=== PATIENT | female | born 1990 | race Caucasian/White ===

== ENCOUNTER 2023-08-26 12:42 | Outpatient (CLI) | payer BC, SELFPAY ==
--- NOTE | 2023-08-26 13:00 | CRLHL7_ITS ---
For Patients: As a result of the Cures Act, medical imaging exams and procedure reports are released immediately into your electronic medical record. You may view this report before your referring provider. If you have questions, please contact your health care provider. INDICATION: First trimester scan, establish dates. COMPARISON: None. TECHNIQUE: Real-time townsend-scale imaging of the pelvis was performed. FINDINGS: Sonographic imaging demonstrates a single living intrauterine gestation. The embryo demonstrates a regular cardiac rate measuring 149 beats per minute. The embryo`s crown-rump length measurement of 1.3 cm corresponds to a gestational age of 7 weeks 4 days with a sonographic due date of 04/09/2024. There is a normal-appearing yolk sac. There are no gross abnormalities noted within the embryo at this early state of development. The gestational sac has a normal appearance. There is no evidence of a perigestational hemorrhage. The amount of fluid within the sac appears appropriate for gestational age. The cervix is closed. The myometrium appears normal. The ovaries are of normal size. There are no suspicious fluid collections noted in the cul-de-sac. IMPRESSION: Normal first trimester OB ultrasound exam. Gestational age calculated at 7 weeks 4 days with a sonographic due date of 04/09/2024. Dictated by Vishnu Weiss MD @ 08/27/2023 10:49:41 AM (Electronically Signed)
== END 2023-08-26 12:43 | disposition home or self-care (01) ==
LOC: US 12:46
PROVIDERS: Visit Provider Physician Assistant
DX: Z34.91 Encounter for supervision of normal pregnancy, unspecified, first trimester (principal); Z3A.01 Less than 8 weeks gestation of pregnancy
CPT/HCPCS: 76817; 86703; 86706; 86803; 86850; 86900; 86901; 87086; 87340

== ENCOUNTER 2023-08-26 13:58 | Outpatient (CLI) | payer BC, SELFPAY | END 2023-08-26 13:59 | disposition home or self-care (01) | PROVIDERS: Visit Provider Advanced Practice Midwife | DX: Z34.91 Encounter for supervision of normal pregnancy, unspecified, first trimester (principal); Z3A.08 8 weeks gestation of pregnancy | CPT/HCPCS: 86592; 86703; 86704; 86706; 86762; 86787; 86803; 86850; 86900; 86901; 87086; 87340 ==

== ENCOUNTER 2023-10-21 09:43 | Outpatient (CLI) | payer BC, SELFPAY | END 2023-10-21 09:44 | disposition home or self-care (01) | PROVIDERS: Visit Provider Advanced Practice Midwife | DX: Z34.92 Encounter for supervision of normal pregnancy, unspecified, second trimester (principal); Z3A.16 16 weeks gestation of pregnancy | CPT/HCPCS: 81511 ==

== ENCOUNTER 2024-01-13 08:34 | Outpatient (CLI) | payer BC, SELFPAY | END 2024-01-13 08:35 | disposition home or self-care (01) | LOC: NFLDREF 01-15 10:49 | PROVIDERS: Visit Provider Obstetrics & Gynecology | DX: Z34.91 Encounter for supervision of normal pregnancy, unspecified, first trimester (principal) | CPT/HCPCS: 86592 ==

== ENCOUNTER 2024-02-10 08:58 | Outpatient (CLI) | payer BC, SELFPAY | END 2024-02-10 08:59 | disposition home or self-care (01) | LOC: NFLDREF 08:59 | PROVIDERS: PCP Obstetrics & Gynecology; Visit Provider Obstetrics & Gynecology | DX: R35.0 Frequency of micturition (principal); R39.15 Urgency of urination | CPT/HCPCS: 87086 ==

== ENCOUNTER 2024-03-11 14:50 | Outpatient (CLI) | payer BC, SELFPAY | END 2024-03-11 14:51 | disposition home or self-care (01) | LOC: NFLDREF 03-16 08:29 | PROVIDERS: Visit Provider Obstetrics & Gynecology | DX: Z34.93 Encounter for supervision of normal pregnancy, unspecified, third trimester (principal) | CPT/HCPCS: 87081; 87653 ==

== ENCOUNTER 2024-03-30 04:59 | Inpatient (IN) | payer BC, SELFPAY ==
[2024-03-30] VITALS (32 sets, daily range): BP systolic 93–116; BP diastolic 55–77; PULSE 65–89; RESP 16–20; TEMP 36.4–36.8; O2SAT 97–100; BMI 34.2
--- OUTSIDE RECORDS SUMMARY | 2024-03-30 05:02 | XMS_ITS | Clinical Summary ---
Author Name Unknown Organization [place] Address [address] [facility] [place] [address] Care Team Providers Care Development Geologist Name Role Phone Leai Vang MD Unavailable [phone] No Ref-Primary, Physician Primary Care Provider Leia Vang MD Unavailable [phone] Allergies No known active allergies Medications Medication Sig Dispensed Refills Start Date End Date Status Vit-DSS-Fe Cbn-FA ( AD PO) Active Active Problems Problem Noted Date Diagnosed Date Need for Tdap vaccination 10/30/2023 Controlled substance agreement signed 10/04/2015 Overview: Overview: For use of stimulant medication Attention deficit hyperactiv ity disorder (ADHD), predominantly inattentive type 09/12/2015 Estimated Date of Delivery Comme nts Yes 04/06/2024 Based on last me nstrual period of 07/01/2023 Resolved Problems Problem Noted Date Diagnosed Date Resolved Date Need for Tdap vaccination 09/19/2017 Family History Medical History Relation Comments No Known Problems Father No Known Problems Mother Leukemia Paternal Grandfather Alzheimer Disease Paternal Grandmother No Known Problems Sister 1 No Known Problems Sister 2 Relation Status Comments Father Alive Maternal Grandfather Maternal Grandmother Mother Alive Paternal Grandfather Paternal Grandmother Sister 1 Alive Sister 2 Alive Social History Tobacco Use Types Packs/Day Years Used Date Smoking Tobacco: Never Smokeless Tobacco: Never Tobacco Cessation:Counseling Given: Not Answered Alcohol Use Standard Drinks/Week Comments No 0 (1 standard drink = 0.6 oz pur e alcohol) PHQ-2 Answer Date Recorded PHQ-2 Score 0 10/30/2023 Adolescent Education Answer Date Record ed Getting School Help Needed Not on file 10/30 Estimated Date of Delivery Comme nts Yes 04/06/2024 Based on last me nstrual period of 07/01/2023 Sex and Gender Information Value Date Recorded Sex Assigned at Not on file Gender Identity Not on file Sexual Orientation Not on file Last Filed Vital Signs Vital Sign Reading Time Taken Comments Blood Pressure 112/69 11/20/2023 3:08 PM ADMINISTRATIVE ASSISTANT RECEPTIONIST Pulse 78 11/20/2023 3:08 PM ADMINISTRATIVE ASSISTANT RECEPTIONIST Temperature 36.9 ??C (98.4 ??F) 09/19/2017 8:57 AM CD T Respiratory Rate - - Oxygen Saturation 100% 11/20/2023 3:08 PM ADMINISTRATIVE ASSISTANT RECEPTIONIST Inhaled Oxygen Concentration - - Weight 92.4 kg (203 lb 9.6 oz) 11/20/2023 3:08 P M ADMINISTRATIVE ASSISTANT RECEPTIONIST Height 177.8 cm (5' 10) 11/20/2023 3:08 PM ADMINISTRATIVE ASSISTANT RECEPTIONIST Body Mass Index 29.21 11/20/2023 3:08 PM ADMINISTRATIVE ASSISTANT RECEPTIONIST Plan of Treatment Health Maintenance Due Date Last Done Comments ADVANCE CARE PLANNING 1990 ANNUAL REVIEW OF HM ORDERS 1990 PAP 2011 YEARLY PREVENTIVE VISIT 09/28/2021 09/28/2020 COVID-19 Vaccine ( season) 2023 01/10/2021, 12/20/2020 MATERNAL SCREENING DISCUSSION 09/09/2023 PHQ-2 (once per calendar year) 2023 10/30/2023 OBGCT (OB) 12/16/2023 GROUP B STREP SCREENING 03/09/2024 INFLUENZA VACCINE (Season Ended) 2024 09/28/2020, 09/05/2019, 08/13/2018, Additional history exists DTAP/TDAP/TD IMMUNIZATION (8 - Td or Tdap) 10/26/2032 10/26/2022, 02/12/2018, 05/27/2008, Additional history exists IPV IMMUNIZATION Completed 06/10/1995, 09/1990, 1990, Additional history exists HEPATITIS B IMMUNIZATION Completed 003, 12/12/2002, 07/23/2002, Additional history exists MENINGITIS IMMUNIZATION Completed 05/18/2008 HPV IMMUNIZATION Completed 09/15/2012, 11/2010, 05/18/2008 HEPATITIS C SCREENING Completed 08/26/2023 HIV SCREENING Completed 08/26/2023 Pneumococcal Vaccine: Pediatrics (0 to 5 Years) and At-Risk Patients (6 to 64 Years) Aged Out No longer eligible based on patient's age to complete this topic RSV MONOCLONAL ANTIBODY Aged Out No l onger eligible based on patient's age to complete this topic RSV VACCINE ( & 60+) (No Doses Required) Completed Procedures Procedure Name Priority Date/Time Associated Diagnosis Comments HIV 1/2 AGN KATHY 4TH GEN WITH REFLEX ([facility]) Routine 08/26/2023 3:00 PM CDT HEPATITIS C ANTIBODY (EXTERNAL RESULT) Routine 08/26/2023 3:00 PM CDT from Last 3 Months or Most Recently Relevant to Health Maintenance Results * Hepatitis C Antibody (External Result) (08/26/2023 3:00 PM CDT) Hepatitis C Antibody (External) Negative Nonreactive EXTERNAL LAB 08/26/2023 3:00 PM CDT Patient Reported LAB - HIM EXTERNAL R ESULT EXTERNAL LAB External Lab * HIV 1/2 Agn Kathy 4th Gen w Reflex ([facility]) (08/26/2023 3:00 PM CDT) HIV 1/2 Agn Kathy 4th Gen With Reflex Negative EXTERNAL LAB Blood 08/26/2023 3:00 PM CDT Patient Reported LAB - NON-BEAKER BLO OD LABS EXTERNAL LAB External Lab from Last 3 Months or Most Recently Relevant to Health Maintenance Care Teams Development Geologist Relationship Specialty Start Date End Date No Ref-Primary, Physician PCP - General 10/21/23 Leia Vang MD [address] [facility] [address] [place] [address] window caser 10/21/23 Leia Vang MD [address] [facility] [address] [place] [address] Assigned OBGYN Provider 11/23/23
--- OUTSIDE RECORDS SUMMARY | 2024-03-30 05:02 | XMS_ITS | Clinical Summary ---
Author Name Unknown Organization [facility] Address [address] [place] [address] Care Team Providers Care Cutter Machine Tender Name Role Phone Unavailable Primary Care Provider Unavailabl e Source Comments Patient records contain information from all sites at [facility]. For routine questions regarding patient records, call [phone] during business hours, M-F 8:00 AM - 5:00 PM Central Time. Record requests for emergency care only can be directed to [phone] at any time.[facility] Allergies No known active allergies Medications Medication Sig Dispensed Refills Start Date End Date Status vits96/iron fum/folic ( vitamin-ferrous fumarate-FA) 27 mg iron- 800 mcg per tablet Take 2 tablets by mouth daily. Active Active Problems Problem Noted Date Diagnosed Date Examination Normal First Second Trimester 07/27/2022 Overview: Patient and partner are healthy, patient with no medical or surgical history, only medication is vitamins, no family history on either side of any significant genetic disease, complications, or defects. 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 Plans to breastfeed Contraception: Declines, plans repeat closely spaced Immunizations Name Administration Dates Next Due 4vHPV (discontinued) 09/15/2012,12/26/2010,05/18 DTaP (Infanrix, [employer]) 06/10/1995,11/1989,1990,1989,1990 HepA Adult 05/15/2013,04/20/2011 HepA Pediatric/Adolescent 04/20/2011 HepB Pediatric/Adolescent 02/25/2003,,07/23/2002,2001,07/23/2000 Hib (PRP-T) (ACTHIB, HIBERIX) 07/09/1991, 991 IPV 06/10/1995 Influenza (IM) Preservative Free 08/25/2015 Influenza TIV (IM) 11/08/2010 Influenza, Seasonal, Injectable 11/08/2010 MCV4 (Menactra)(Discontinued) 05/18/2008 MMR 05/23/2015, 5,07/09/1999,1990 OPV 1990,1990,1990 SARS-COV-2 (COVID-19) - PFIZ ER (Discontinued)(12 years or older) 12/20/2020 Td Preservative Free (TENIVA C, DECAVAC) 06/02/2002 Tdap 10/26/2022,02/12/2018,05/27/2008 TyVi (inj) 05/15/2013,06/22/2011 Typhoid, Unspecified 05/15/2013,06/22/2011 Typhus (discontinued) 05/15/2013,06/22/2011 ALISON 03/25/1993 influenza vaccine quad (FLUZONE/FLUARIX) (6 months and older)(PF) 09/28/2020,09/05/2019,08/13/2018 Social History Tobacco Use Types Packs/Day Years Used Date Smoking Tobacco: Never Smokeless Tobacco: Never Tobacco Cessation:Counseling Given: Not Answered Alcohol Use Standard Drinks/Week Comments Not Currently 0 (1 standard drink = 0.6 oz pur e alcohol) , not drinking Humiliation, Afraid, Rape, and Kick questionnair e Answer Date Recorded Within the last year, have y ou been afraid of your partner or ex-partner? No 12/20/2022 Within the last year, have y ou been humiliated or emotionally abused in other ways by your partner or ex-partner? No Within the last year, have y ou been kicked, hit, slapped, or otherwise physically hurt by your partner or ex-partner? No 12/20/2022 Within the last year, have y ou been raped or forced to have any kind of sexual activity by your partner or ex-partner? No 12/20/2022 Social Connection and Isolat ion Panel [NHANES] Answer Date Recorded In a typical week, how many times do you talk on the phone with family, friends, or neighbors? More than three times a week 12/20/2022 How often do you get togethe r with friends or relatives? Twice a week 12/20/2022 How often do you attend chur or amish services? More than 4 times per year 12/20/2022 Do you belong to any clubs o r organizations such as quaker groups, unions, fraternal or athletic groups, or school groups? Yes 12/20/2022 How often do you attend meet ings of the clubs or organizations you belong to? More than 4 times per year 12/20/2022 Are you , , di vorced, , never , or living with a partner? 12/20/2022 AUDIT-C Answer Date Recorded Q1: How often do you have a drink containing alc ohol? Never 12/20/2022 Q2: How many drinks containi ng alcohol do you have on a typical day when you are drinking? 3 or 4 12/20/2022 Q3: How often do you have si x or more drinks on one occasion? Less than monthly 12/20/2022 Overall Financial Resource Strain (CARDIA) Answe r Date Recorded How hard is it for you to pa y for the very basics like food, housing, medical care, and heating? Not hard at all 12/20/2022 PHQ-2 Answer Date Recorded PHQ-2 Score 0 02/26/2023 [facility] Health - Occupational Stress Questionnaire Answer Date Recorded Do you feel stress - tense, restless, nervous, or anxious, or unable to sleep at night because your mind is troubled all the time - these days? Not at all 12/20/2022 Exercise Vital Sign Answer Date Recorde d On average, how many days pe r week do you engage in moderate to strenuous exercise (like a brisk walk)? 3 days 12/20/2022 On average, how many minutes do you engage in exercise at this level? 30 min 12/20/2022 Hunger Vital Sign Answer Date Recorded Within the past 12 months, y ou worried that your food would run out before you got the money to buy more. Never true 12/20/19 23 Within the past 12 months, t he food you bought just didn't last and you didn't have money to get more. Never true 12/20/2022 PRAPARE - Transportation Answer Date Re corded In the past 12 months, has l ack of transportation kept you from medical appointments or from getting medications? No 11/26 In the past 12 months, has l ack of transportation kept you from meetings, work, or from getting things needed for daily living? No 12/20/2022 Housing Stability Vital Sign Answer Marcial e Recorded In the last 12 months, was t here a time when you were not able to pay the mortgage or rent on time? No 12/20/2022 In the last 12 months, how many places have you lived? 1 12/20/2022 In the last 12 months, was t here a time when you did not have a steady place to sleep or slept in a long-term (including now)? No 12/20/2022 Depression Answer Date Recor ded PHQ-9 Total Score (max 27) 2 02/26 Nutrition Answer Date Recorded Nutrition: EVOO Fat Source Yes 12/20 On average, how many serving s of fruits and vegetables do you eat per day (serving size is equal to 1 cup or approximately the size of a tennis ball)? 4-5 12/20/2022 Dental Answer Date Recorded Dental: Regular Dentist Yes 06/06/20 Employment Answer Date Recorded Employment status Employed and actively working without restrictions 12/20/2022 Education Answer Date Recorded What is the highest level of school you have completed or the highest degree you have received? Professional school degree (e.g., , DDS, DVM, URBANO) 06/06/2022 Sex and Gender Information Value Date Recorded Sex Assigned at Female 06/06/2022 10:20 AM CDT Gender Identity Female 06/06/2022 10:20 AM CDT Sexual Orientation Straight 06/06/2022 10 :20 AM CDT Last Filed Vital Signs Vital Sign Reading Time Taken Comments Blood Pressure 110/66 02/26/2023 2:39 PM CDT Pulse - - Temperature - - Respiratory Rate - - Oxygen Saturation - - Inhaled Oxygen Concentration - - Weight 98.7 kg (217 lb 9.5 oz) 02/26/2023 2:39 P M CDT Height 177.4 cm (5' 9.84) 06/18/2022 3:08 PM CD T Body Mass Index 31.36 06/18/2022 3:08 PM CDT Plan of Treatment Health Maintenance Due Date Last Done Comments Cervical Cancer Screening 1990 COVID-19 Vaccine ( season) 2023 01/10/2021, 12/20/2020 Influenza Vaccine (#1) 2023 , 09/05/2019, 08/13/2018, Additional history exists Depression Screening (Annual PHQ-2) 11/25/2023 DTaP,Tdap,and Td Vaccines (9 - Td or Tdap) 02/09/2034 02/10/2024, 10/26/2022, 02/12/2018, Additional history exists Hepatitis B Vaccines Completed 02/25/2003, 12/12/2002, 07/23/2002, Additional history exists HPV Vaccines Completed 09/15/2012, 11/2010, 05/18/2008 Hepatitis A Vaccines Completed 05/15/2013, 04/20/2011, 04/20/2011 HIV Screening Completed 06/18/2022 Hepatitis C Screening Completed 06/18/2022 Pneumococcal vaccine (0-64 years) Aged Out No longer eligible based on patient's age to complete this topic Procedures Procedure Name Priority Date/Time Associated Diagnosis Comments HCV AB SCRN W/REFLEX TO HCV PCR, S Routine 06/18/2022 4:39 PM CDT Encounter For Supervision Of Normal First Unspecified Trimester (HCC) HIV-1/-2 AG AND AB SCRN, PLASMA Routine 06/18/2022 4:39 PM CDT Encounter For Supervision Of Normal First Unspecified Trimester (HCC) from Last 3 Months or Most Recently Relevant to Health Maintenance Results * HIV-1/-2 Ag and Ab Scrn, Plasma (06/18/2022 4:39 PM CDT) HIV Ag/Ab Scrn, P Negative Negative 06/19/2022 2:58 PM CDT [facility] Comment: Negative result does not rule out HIV infection. If exposure to HIV infection occurred <14 days ago, contact the laboratory to request addition of HIV-1 RNA detection / quantification test. HIV-1 p24 Ag Scrn, P Negative Negative 06/19/2022 2:58 PM CDT [facility] Comment: Negative result does not rule out HIV infection. If exposure to HIV infection occurred <14 days ago, contact the laboratory to request addition of HIV-1 RNA detection / quantification test. HIV-1 Ab Scrn, P Negative Negative 06/19/2022 2:58 PM CDT [facility] Comment: Negative result does not rule out HIV infection. If exposure to HIV infection occurred <14 days ago, contact the laboratory to request addition of HIV-1 RNA detection / quantification test. HIV-2 Ab Scrn, P Negative Negative 06/19/2022 2:58 PM CDT [facility] Comment: Negative result does not rule out HIV infection. If exposure to HIV infection occurred <14 days ago, contact the laboratory to request addition of HIV-1 RNA detection / quantification test. Blood (Blood, Venous) 06/18/2022 4:39 PM CDT 06/19/2022 10:46 AM CDT Henri Ron M.D. LAB MICROBIOLOGY - B LOOD ORDERABLES Performing Organization Address [facility]/State/ZIP Co de Phone Number [facility] [address] [place] [address], [facility] [place] [address] * HCV Ab Scrn w/Reflex to HCV PCR, Serum (06/18/2022 4:39 PM CDT) HCV Ab Screen, S Negative Negative 06/19/2022 8:58 AM CDT [facility] Comment:Eqxweb-gw-luodqo rat io is <1.00. Blood (Blood, Venous) 06/18/2022 4:39 PM CDT 06/19/2022 6:49 AM CDT Henri Ron M.D. LAB MICROBIOLOGY - B LOOD ORDERABLES [facility] [address] [place] [address] [facility] Dept. of Laboratory Medicine and Pathology [address] [place] [address] from Last 3 Months or Most Recently Relevant to Health Maintenance
--- OUTSIDE RECORDS SUMMARY | 2024-03-30 05:02 | XMS_ITS | Referral Summary ---
Author Name Unknown Organization [facility] Address [address] [place] [address] Care Team Providers Care Stock Sorter Name Role Phone Unavailable Primary Care Provider Unavailabl e Source Comments Patient records contain information from all sites at [facility]. For routine questions regarding patient records, call [phone] during business hours, M-F 8:00 AM - 5:00 PM Central Time. Record requests for emergency care only can be directed to [phone] at any time.[facility] Allergies No known active allergies Medications Medication [...] How often do you attend chur or scientology services? More than 4 times per year 12/20/2022 Do you belong to any clubs o r organizations such as latter-day groups, unions, fraternal or athletic groups, or [...] Answer Date Recorded PHQ-2 Score 0 02/26/2023 [facility] Occupat ionsd Health - Occupational Stress Questionnaire Answer Date [...] place to sleep or slept in a nursing home (including now)? No 12/20/2022 Depression Answer Date [...] 06/18/2022 3:08 PM CDT Plan of Treatment Not on file Procedures Procedure Name Priority Date/Time Associated Diagnosis [...] M.D. LAB MICROBIOLOGY - B LOOD ORDERABLES [facility] [address] [place] [address], [place] [facility] [place] [address] [place] [address] * HCV Ab Scrn w/Reflex to HCV PCR, Serum (06/18/2022 4:39 PM CDT) HCV Ab Screen, S Negative Negative 06/19/2022 8:58 AM CDT [facility] Comment:Mhspvf-nr-vcvojn rat io is <1.00. Blood (Blood, Venous) 06/18/2022 4:39 PM CDT 06/19/2022 6:49 AM CDT Henri Ron M.D. LAB MICROBIOLOGY - B LOOD ORDERABLES [facility] [address] [place] [address] [facility] Dept. of Laboratory Medicine and Pathology [address] [place] [address] from Last 3 Months or Most Recently Relevant to Health Maintenance
--- OUTSIDE RECORDS SUMMARY | 2024-03-30 05:02 | XMS_ITS | Referral Summary ---
Author Name Unknown Organization [place] Address [address] [facility] [place] [address] Care Team Providers Care Watch Engine Operator Name Role Phone Leia Vang MD Unavailable [phone] No Ref-Primary, Physician Primary Care Provider Leia Vang MD Unavailable [phone] Allergies No known active allergies Medications Medication [...] Resolved Date Need for Tdap vaccination 09/19/2017 Social History Tobacco Use Types Packs/Day Years [...] Comments Blood Pressure 112/69 11/20/2023 3:08 PM LOW VISION THERAPIST Pulse 78 11/20/2023 3:08 PM LOW VISION THERAPIST Temperature 36.9 ??C (98.4 ??F) 09/19/2017 8:57 AM CD T Respiratory Rate - - Oxygen Saturation 100% 11/20/2023 3:08 PM LOW VISION THERAPIST Inhaled Oxygen Concentration - - Weight 92.4 kg (203 lb 9.6 oz) 11/20/2023 3:08 P M LOW VISION THERAPIST Height 177.8 cm (5' 10) 11/20/2023 3:08 PM LOW VISION THERAPIST Body Mass Index 29.21 11/20/2023 3:08 PM LOW VISION THERAPIST Plan of Treatment Not on file Procedures [...] Recently Relevant to Health Maintenance Care Teams Watch Engine Operator Relationship Specialty Start Date End Date No Ref-Primary, Physician PCP - General 10/21/23 Leia Vang MD [address] [facility] [address] [place] [address] cna per diem 10/21/23 Leia Vang MD [address] [facility] [address] [place] [address] Assigned OBGYN Provider 11/23/23
--- OUTSIDE RECORDS SUMMARY | 2024-03-30 05:02 | XMS_ITS ---
Author Name Unknown Organization [facility] Address [address] [place] [address] Care Team Providers Care Metal Sponge Making Machine Operator Name Role Phone Unavailable Unavailable Unavailable Surgery Details Not on file Complications Check Surgery Details section. Procedure Estimated Blood Loss Check Surgery Details section. Procedure Findings Check Surgery Details section. Procedure Specimens Taken Check Surgery Details section.
[2024-03-30] MEDS: LACTATED RINGERS 1000 ML 1,000 ML 500 ML IV (05:20)
[2024-03-30 05:34] LABS: Hemoglobin* 10.6 gm/dL (12.0-16.0)
[2024-03-30] MEDS: LACTATED RINGERS 1000 ML 1,000 ML 125 ML IV ×3 (06:29→12:02)
--- NOTE | 2024-03-30 07:08 | P.LDBA_ITS ---
Subjective History of Present Illness Narrative: Patient is being admitted to Labor and Delivery for scheduled delivery. She is a 34 year old at 39.0 weeks gestation. Her full history and physical was dictated by Dr. Romano on 03/18/24. Please see this for details. No interval changes to her history. Specific Issues/Plans 1. Hx of c/s, CD to conception: <6 months -01/19/2023 for failure to progress, pt reports she was only every 2-3 cm -Desires to TOLAC, desires to do some research of other sites -C/s consult with [facility]: declined TOLAC for her given her short interval . Per [facility] well there is limited data available, there are studies that show that with an inter interval (from just start of the next ) of less than 6 months the risk of uterine rupture is closer 3% compared to 0.5-0.8% for women with an inter interval of greater than 12-18 months. -Repeat section scheduled on 03/30/[address] Romano COVID: fully vaccinated Flu: not today TDAP: 02/10/24 32wk Mental Health: 02/10/24 34wk Hgb: 02/26/24 36wk GBS: 03/11/24 H&P: 03/18/[address] Romano OB - Problem Based A/P Additional Plan (1) : Status: Acute (2) H/O section: Problem details: Date of delivery: 01/19/2023. Failure to progress, only ever dilated to 2-3 cm Status: Acute (3) Short interval between pregnancies affecting , antepartum: Status: Acute Plan - No interval changes since last seen in clinic - Hgb 10.6 gm/dL this AM - Plan: All questions answered. Will proceed with scheduled delivery. OB Exam Physical Exam Vital signs: Temp Pulse Resp BP 97.9 F 89 16 100/60 03/30/24 05:24 03/30/24 05:24 03/30/24 05:24 03/30/24 05:24 Narrative: Physical exam: General: No acute distress Psych: Alert and oriented x3, full affect HEENT: Normocephalic, atraumatic Lungs: Unlabored breathing Neuro: No focal deficit. Mentating appropriately Pelvic exam: Deferred
[2024-03-30] MEDS: CEFAZOLIN 2 GM INJ IVP (07:48)
--- NOTE | 2024-03-30 08:44 | PM.OBPRCCS ---
Procedure Time Seen by Provider: 08:00 Date of procedure: 03/30/24 Procedure Done: Global Will [facility] bill your pro fee for this procedure?: Yes Procedure Description: DELIVERY BY SECTION Date of Service: 03/30/2024 Delivery time: 804 Summary: Admitted for scheduled repeat delivery at 39.0, repeat lower uterine transverse section, Pfannenstiel, Closed with sutures, QBL 345 cc, no complications, Findings: Moderate amount of adhesions of the pyramidalis muscle to the fascial, filmy adhesion of bladder to the anterior uterus, Normal uterus, bilateral ovaries and tubes 8/9, weight: 8lb. Primary Indication: 1. Previous delivery x1 2. Close interval : <6 months Procedures: Repeat Lower uterine transverse section - Forceps assisted at hysterotomy Specimens Removed: Placenta Surgeon: Ana Romano MD Anesthesia: Spinal Report: Prophylactic antibiotic, 2 g of Ancef was given before patient was taken to OR. After arrival to the operating room patient was placed in the supine position with left lateral tilt after administration of spinal anesthesia (spinal anesthesia repeated due to inadequate analgesia with 1st attempt). Laparotomy A pfannenstiel incision was made through the anterior abdominal wall with #10 scalpel approximately 2 cm above the pubic symphysis. The incision was extended sharply with the #10 scalpel through the subcutaneous tissue to the level of fascia. The fascia was entered sharply with a #10 scalpel (Pfannenstiel) in the midline and extended in semi-elliptical fashion with Stallworth scissor. The underlying muscles were dissected off the overlying fascia by grasping the superior aspect of fascia with two ankit clamps and blunt dissection was used along the midline. The fascia was further from rectus muscle with Stallworth scissor and/or cautery. In similar fashion, the lower aspect of fascia was also grasped with two Ankit clamps and both blunt and sharp dissection was used to separate fascia from rectus muscle. The rectus muscles were in the midline sharply with Metzenbaum. The peritoneum was then entered sharply with Lita's and Metzenbaum. The peritoneal incision was then extended superiorly and inferiorly under direct visualization with care being taken to avoid bladder and bowel. Filmy adhesions were noted intraabdominally. The peritoneal incision was enlarged bluntly by lateral traction from the surgeon's and airline pilot/first officer's hand. Giovanny retractor was inserted into the abdomen. Delivery A bladder flap was developed by grasping with Mosotho forcep and enter with Metzenbaun scissor. Then sharp and blunt dissection with Metzenbaum scissor and fingers were performed. A low transverse hysterotomy was made then with #10 scalpel and extended laterally and cephalad with fingers in a low transverse fashion with Manu Lizama technique with care being taken to avoid injury to the fetus. The amniotic cavity (membrane) was then entered with spontaneous rupture of membrane, and the amniotic fluid was noted to be clear, fetus was delivered cephalic with the assistance of Laufe forceps as their was little mobility with fundal pressure. With delivery of the baby, no extension was noted. Placenta was delivered spontaneously with steady traction on cord and manual separation of placenta from uterine wall. Closure Uterine cavity was cleaned after placental delivery with lap sponge x 2. The hysterotomy was closed in two layers with stitches using 0 vicryl with continuous locking stitches and 0 monocryl in a continuous non locking manner. Hemostasis was achieved as needed with electrocautery. The ovaries/tubes/uterine surface were evaluated. They were found to be normal. Giovanny retractor removed and hemostasis was confirmed again. Fascia was closed with running stitches using 0 PDS. Subcutaneous layer was irrigated. Hemostasis was checked for and found to be adequate. The subcutaneous layer was closed with running 2-0 Vicryl sutures. The skin was closed with monocryl subcuticular sutures . The incision was cleaned, Exofin applied, and Mepilex dressing placed. The procedure was considered terminate at this time. Intraoperative Complications: None QBL: 345 cc Uterotonics: 30u of pitocin. Disposition: The patient tolerated the procedure well. She was recovered in Obstetric PACU for close monitoring in stable condition, with a contracted uterus and normal transvaginal bleeding. The infant was sent to mother?s bedside/PACU. The placenta was not sent to pathology. Debrief with OR team performed and specimen reviewed at the conclusion of the procedure.
--- NOTE | 2024-03-30 09:00 | W.ANESCHARGE ---
Anesthesia Charges Start Date/Time Anesthesia Start Date: 03/30/24 Anesthesia Start Time: 07:20 Stop Date/Time Anesthesia Stop Date: 03/30/24 Anesthesia Stop Time: 08:57
--- NOTE | 2024-03-30 10:14 | P.NB_ITS ---
Nerve Block Nerve Block Time Seen by Provider: 08:48 Date Seen: 03/30/24 Type of block requested by surgeon for post-operative analgesia: TAP Side: bilateral Time out performed: Yes Verification of patient name: Yes Verification of date of : Yes Site marking: site marked Name of person performing procedure: Tk Continuous monitoring Was continuous monitoring of O2 sat, B/P, surveillance system monitor, recorded every 15 minutes?: Yes Procedure Checklist: sterile prep, needles and gloves Ultrasound guided. Images saved: Yes Medications given in 5ml increments after negative aspiration: Marcaine %: 0.25 mL: 30 Needle gauge: 20 and Exparel mL: 10 Patient tolerated procedure well: Yes Additional comments: Needle noted between internal oblique and transversus abdominus. Local spread visualized Block Charges Block Charge (with Pro Fee): TAP Bilateral Use of Ultrasound Machine for Block: Yes- US Guidance/pain block
--- NOTE | 2024-03-30 10:14 | W.ANESCHARGE ---
Anesthesia Charges Start Date/Time Anesthesia Start Date: 03/30/24 Anesthesia Start Time: 07:20 Stop Date/Time Anesthesia Stop Date: 03/30/24 Anesthesia Stop Time: 08:57
[2024-03-30] MEDS: KETOROLAC 30 MG/ML inj IVP ×2 (14:45→20:37)
[2024-03-31] VITALS (12 sets, daily range): BP systolic 97–115; BP diastolic 62–79; PULSE 72–78; RESP 16; TEMP 36.3–36.6; O2SAT 97–99
[2024-03-31] MEDS: ACETAMINOPHEN 500 MG TABLET 1000 MG PO ×3 (00:29→20:46)
[2024-03-31] MEDS: KETOROLAC 30 MG/ML inj IVP ×3 (02:44→15:44)
[2024-03-31 07:11] LABS: Hemoglobin* 9.7 gm/dL (12.0-16.0)
--- NOTE | 2024-03-31 07:51 | PM.OBPNVD1 ---
OB - PN:Subj Subjective Date Seen: 03/31/24 Patient comments OB post-: no complaints, pain well controlled, tolerating diet and flatus present [place] status: and doing well [place] feeding status: exclusively Narrative: The patient feels well.? The pain is well controlled with current medications.? She has no new complaints.? Urinary output is adequate and she is voiding without difficulty.? Has a good appetite, is tolerating a general diet, is passing flatus, and has had a bowel movement.? Has scant amount of rubra lochia.? She is ambulating well.?She is and feels that it is going well. OB - PN: Obj Exam Physical Exam: Vital signs: Temp Pulse Resp BP Pulse Ox O2 Del Method 97.9 F 78 16 115/79 98 Room Air 03/31/24 07:42 03/31/24 07:42 03/31/24 07:42 03/31/24 07:42 03/31/24 07:42 03/31/24 07:42 Narrative: GENERAL APPEARANCE:? normal affect, alert, no distress? MOOD:? appropriate? CHEST:? clear to auscultation and percussion? HEART:? regular rate and rhythm? ABDOMEN:? soft, non-tender the uterine fundus is U/2 and is appropriate for the stage of recovery.?Incision dressing was removed this morning. Incision is well approximated without drainage or redness.? EXTREMITIES:? normal and no edema? Urinary Catheter Management: Urethral: Cath placed during this visit: yes, but has since been removed by the nurse Reason for continuing: surgical procedure Insertion date: 03/30/24 Insertion time: 07:33 Removal date: 03/30/24 Removal time: 16:00 OB - PN: Obj Data Labs Labs: Laboratory Results - last 24 hr 03/31/24 07:03 Hgb 9.7 L OB - PN: A/P Delivery Assessment and Plan (1) Short interval between pregnancies affecting , antepartum: Status: Acute (2) Lactating mother: Status: Acute (3) care following delivery: Status: Acute Plan day: 1 Plan: routine care Comments: Anticipate discharge home tomorrow or the following day per patient preference. support as needed.
[2024-03-31] MEDS: FERROUS SULFATE 325 MG TABLET PO (07:54)
[2024-03-31] MEDS: DOCUSATE SODIUM 100 MG CAPSULE PO (07:54)
--- NOTE | 2024-03-31 13:42 | PM.ANPOST ---
Post Anesthesia Note Post Anesthesia Note Patient seen: Inpatient Respiratory Status: adequate Cardiovascular Status: adequate Mental Status: baseline Pain: adequate Temp: baseline Anesthetic awareness: N/A Complications: none Follow care: none
[2024-04-01] MEDS: IBUPROFEN 600 MG TABLET PO ×2 (00:18→08:47)
[2024-04-01 00:20] VITALS: BP 122/83; PULSE 74; RESP 16; TEMP 36.3; O2SAT 97
[2024-04-01] MEDS: ACETAMINOPHEN 500 MG TABLET 1000 MG PO (03:11)
[2024-04-01 08:31] VITALS: BP 114/75; PULSE 78; RESP 16; TEMP 36.9; O2SAT 97
--- NOTE | 2024-04-01 08:41 | PM.OBDSVD1 ---
DS: Providers Provider Date Seen: 04/01/24 Date of admission: 03/30/24 04:59 Primary care physician: Not a Local Provider Admitting Clinician: Ana Romano MD Attending Physician on discharge: Earl Kelley CNM Date of Discharge: 04/01/24 DS: Diagnosis Discharge Diagnosis (1) care following delivery: Status: Acute (2) Lactating mother: Status: Acute Exam Narrative: Exam Narrative: GENERAL APPEARANCE:? normal affect, alert, no distress MOOD:? appropriate CHEST:? clear to auscultation HEART:? regular rate and rhythm ABDOMEN:? soft, non-tender the uterine fundus is firm At Umbilicus, Midline and is appropriate for the stage of recovery. PERINEUM:? intact EXTREMITIES:? normal and no edema Incision: Healing well, no surrounding erythema, abnormal induration or discharge Const: Vital Signs, click to edit/add: Vital Signs - 24 hr 03/31/24 15:56 03/31/24 17:11 04/01/24 00:20 Temperature 97.4 F L 97.3 F L Pulse Rate [Right Pulse Oximeter] 72 74 Respiratory Rate 16 16 16 Blood Pressure [Ri ght Arm] 106/69 122/83 Pulse Oximetry 99 97 Oxygen Delivery Me thod Room Air Room Air 04/01/24 08:31 Temperature 98.4 F Pulse Rate [Right Pulse Oximeter] 78 Respiratory Rate 16 Blood Pressure [Ri ght Arm] 114/75 Pulse Oximetry 97 Oxygen Delivery Me thod Room Air Documenting provider has reviewed patient's vital signs: yes OB - DS: Summary Hospital Course Hospital Course: Isabel is a 34 y.o. who was admitted to [facility] for repeat cesrean section. ?She had an uncomplicated .?The patient feels well. ?The pain is well controlled with current medications. ?She has no new complaints. ?She is breast feeding and reports things are going well.? the patient has done well.? Vitals have been stable.? She has remained afebrile.? Has a good appetite, is tolerating a general diet. ?She is voiding without difficulty.? She is passing gas and has not had a bowel movement.? She is ambulating and denies any dizziness.? Has Small amount of rubra lochia. ?She is planning Paragard IUD for prevention. Peripartum Data Infant delivery method: Repeat Section Procedures: Procedures Operation Date: 03/30/24 07:15 Actual Procedure Side Surgeon p Repeat Delivery Ana Romano MD complications: none Gender: Male Discharge Plan: Home Status at Discharge Functional status at discharge: independent ambulation Overall status at discharge: patient is progressing back to baseline Time Spent with Patient Time attestation: Total time spent providing and/or coordinating discharge services: Discharge Plan Discharge Disposition: Home, Self-Care Date of Admission: 03/30/24 04:59 Attending Provider on Discharge: Earl Kelley Primary Care Provider: Provider,Not a Local Condition: Stable Anticipated Discharge Date/Time: 04/01/24 12:00 Discharge Medications: New acetaminophen 500 mg Tablet 1,000 mg PO Q6H PRN (Reason: Pain) Qty: 0 0RF ferrous sulfate 325 mg (65 mg iron) Tablet 325 mg PO Q OTHER DAY Qty: 30 2RF docusate sodium 100 mg Capsule 100 mg PO DAILY Qty: 90 2RF ibuprofen 600 mg Tablet 600 mg PO Q6H PRN (Reason: Pain) Qty: 60 0RF oxycodone 5 mg Tablet 5 - 10 mg PO Q4H PRN (Reason: Pain) Qty: 10 0RF Continued Classic 28 mg iron- 800 mcg tablet 1 tab PO DAILY PRN omeprazole 20 mg capsule,delayed release(DR/EC) 20 mg PO QDAY Discharge Orders: Discharge Order (Routine); Ordered 04/01/24 Ordered By: Earl Kelley Patient Education: OB Over the Counter Medication Information, OB /Breast Feeding Additional Instructions: Discharge instructions were reviewed with the patient including signs and symptoms of infection and home going medications Lifting Restrictions: 20 pounds for 6 weeks No not submerge incision under water X 2 weeks? Nothing vaginally for 6 weeks: no tampons or intercourse Do not drive while taking narcotic pain medication(s) Off Work or School for 8 weeks 2-week visit: incision check, discuss feeding concerns, review control options and screen for anxiety/depression. 6-week visit for an annual exam. consultation services are available to all mothers and babies for the first year after delivery.? To make an appointment, please call [phone]. Activity Level: Activity as Tolerated Discharge Diet: Regular Follow Up Appointments: Provider,Not a Local [Primary Care Provider] - [facility] [Provider Group] Forms: [employer] Info Instructions
[2024-04-01] MEDS: FERROUS SULFATE 325 MG TABLET PO (08:48)
[2024-04-01] MEDS: DOCUSATE SODIUM 100 MG CAPSULE PO (08:48)
== END 2024-04-01 10:55 | disposition home or self-care (01) | DRG 540 ==
PROVIDERS: Admitting Provider Obstetrics & Gynecology; Visit Provider Obstetrics & Gynecology
PROC: 10D00Z1 Extraction of Products of Conception, Low, Open Approach (ICD-10-PCS; CPT 59514; principal; 2024-03-30 07:15)
DX: O34.211 Maternal care for low transverse scar from previous cesarean delivery (principal); G89.18 Other acute postprocedural pain; Z3A.39 39 weeks gestation of pregnancy; Z37.0 Single live birth
CPT/HCPCS: 01961; 36415; 64488; 76942; 85018; 85025; 86592; 86850; 86900; 86901; 94761; A9270; C9290; J0665; J0690; J1100; J1885; J2274; J2371; J2405; J2590; J7120

== ENCOUNTER 2024-04-10 15:11 | Inpatient (IN) | payer BC, SELFPAY ==
[2024-04-10] VITALS (16 sets, daily range): BP systolic 111–124; BP diastolic 72–99; PULSE 78–103; RESP 12–18; TEMP 37.1–38.2; O2SAT 95–99; BMI 29.8
--- NOTE | 2024-04-10 15:25 | ED_ITS ---
HPI - General Adult General Chief complaint: Fever Stated complaint: pain after Time Seen by Provider: 04/10/24 15:13 History of Present Illness HPI narrative: Had C Section here on 03/30/24. At 0400 this AM, started having incision pain, low back pain, body aches, and noted low grade 99.8 temp. Notes incisional site is warm to touch and edematous. Denies redness. Took ibuprofen @ 0830 which was helpful. 34-year-old woman presenting to the emergency department concern of fever, or least elevated temperature, body aches. Yesterday started to have some soreness in her abdomen that she attributed to maybe just straining something. Discomfort more so this morning with a localization to the area of incision. Had 11 days ago a at this facility. She has noted some swelling in the area of her scar. No dysuria. No constipation. No known exposure to illness otherwise. No breast redness or tenderness noted. She does ask if I might check her left ear as she had been radiating quickly and got too aggressive with a cotton swab in the left ear in worried that she might of perforated something and that maybe something is infected contributing also to her symptoms here today. Related Data Home Medications ?Medication ?Instructions ?Recorded ?Confirmed vits no.126-ferrous fum 1 tab PO DAILY PRN 08/26/23 04/14/24 28 mg iron-folic acid 800 mcg tablet (Classic ) Previous Rx's ?Medication ?Instructions ?Recorded ibuprofen 600 mg tablet 600 mg PO Q6H PRN Pain #60 tabs 04/01/24 amoxicillin 875 mg-potassium 1 tab PO BID #10 tabs 04/12/24 clavulanate 125 mg tablet Allergies Allergy/AdvReac Type Severity Reaction Status Date / Time No Known Drug Allergies Allergy Verified 04/14/24 09:21 Review of Systems Status of ROS: Reports: 6 or more systems reviewed and unremarkable except as noted in History and below [facility] Medical History (Updated 04/20/24 @ 00:01 by Dior Wu) No significant past medical history Surgical History Equality teeth removed ?K08.409 - Partial loss of teeth, unspecified cause, unspecified class (ICD- 10) H/O section ?Z98.891 - History of uterine scar from previous surgery (ICD-10) Family History Mother No problems noted. Father No problems noted. Paternal Grandmother Alzheimers disease Paternal Grandfather Leukemia Maternal Grandfather No problems noted. Maternal Grandmother No problems noted. Sister No problems noted. Sister No problems noted. 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) Lives with: Tank Pets: dog Abuse: Denies past/present Special Diet: Denies Ok with a blood transfusion: yes Culture or taoist beliefs: denies RISK FACTORS Exercise Times/wk: Walk 45 min per day, cardio or lift weights Depression/Anxiety: denies Seat Belt Use: Routinely Smoking: Denies past/present Alcohol/day: Denies while ; rarely Caffeine: Coffee 2 cups per day Drug Use: Denies past/present Chicken Pox: Yes as a child MRSA: Denies What is your current living situation?: I presently have a place to live Problems where you live: no known problems In the past 12 months, utilities in danger of being shut off: no In past 12 months, lack of transportation kept you from medical appts, meetings, work, or getting things needed for daily living: no In the past 12 mos, have been you worried that your food would run out before you had money to buy more?: never true In the past 12 mos, the food you bought just didn't last and you didn't have money to buy more?: never true Smoking Status: Never smoker Non-prescribed substance use: denies use How often does anyone, including family, friends and others, physically hurt you : never How often does anyone, including family, friends and others, insult or talk down to you: never How often does anyone, including family, friends and others, threaten you with harm: never How often does anyone, including family, friends and others, scream or curse at you: never Little interest or pleasure in doing things: not at all Feeling down, depressed, or hopeless: not at all Exam Narrative: Exam Narrative: I pleasant. NAD. Carefully groomed. Skin is warm and dry. Extremities are without edema. Heart in the tachycardic rate with regular rhythm. No murmur or gallop identified. Abdomen is soft. Increasingly sore in the area of well- healing surgical incision a Pfannenstiel. No inflammatory changes are noted. There is tension and fullness longitudinally superior to this incision site. Tenderness here as well. Lungs are clear; she is breathing easily. Right TM and canals unremarkable. Left TM also WNL with faint erythema within the canal. No active bleeding. No tenderness to palpation of the tragus or the pinna on the left Const: Vital Signs, click to edit/add: Vital Signs - 24 hr 04/10/24 15:21 04/10/24 16:00 04/10/24 17:06 Temperature 100.7 F H 100.7 F H Pulse Rate 96 Pulse Rate [Pulse Oximeter] 103 H 103 H Respiratory Rate 16 16 Blood Pressure Blood Pressure [Ri ght Arm] 124/99 H Blood Pressure [Ri ght Upper Arm] 124/99 H Pulse Oximetry 97 97 98 Oxygen Delivery Me thod Room Air Room Air 04/10/24 17:07 04/10/24 17:15 04/10/24 17:30 Temperature Pulse Rate 98 102 H 94 Pulse Rate [Pulse Oximeter] Respiratory Rate 18 Blood Pressure 122/77 Blood Pressure [Ri ght Arm] Blood Pressure [Ri ght Upper Arm] Pulse Oximetry 98 97 97 Oxygen Delivery Me thod Room Air 04/10/24 17:45 04/10/24 18:00 04/10/24 18:15 Temperature 99.8 F H Pulse Rate 95 94 94 Pulse Rate [Pulse Oximeter] Respiratory Rate 18 Blood Pressure Blood Pressure [Ri ght Arm] Blood Pressure [Ri ght Upper Arm] Pulse Oximetry 96 95 95 Oxygen Delivery Me thod Room Air 04/10/24 18:30 04/10/24 18:45 Temperature Pulse Rate 94 89 Pulse Rate [Pulse Oximeter] Respiratory Rate Blood Pressure Blood Pressure [Ri ght Arm] Blood Pressure [Ri ght Upper Arm] Pulse Oximetry 96 97 Oxygen Delivery Me thod Room Air Documenting provider has reviewed patient's vital signs: yes Course Vital Signs Vital signs: Initial Vital Signs Temperature 100.7 F H 04/10/24 15:21 Temperature Source Temporal Artery Scan 04/10/24 15:21 Pulse Rate 103 H 04/10/24 15:21 Pulse Rhythm Regular 04/10/24 15:21 Pulse Strength 3+ Normal 04/10/24 15:21 Respiratory Rate 16 04/10/24 15:21 Blood Pressure 124/99 H 04/10/24 15:21 Blood Pressure Mean 107 H 04/10/24 15:21 Blood Pressure Position Semi-Fowlers 04/10/24 15:21 Pulse Oximetry 97 04/10/24 15:21 Oxygen Delivery Method Room Air 04/10/24 15:21 Vital Signs Temperature 100.7 F H 04/10/24 15:21 Pulse Rate 103 H 04/10/24 15:21 Respiratory Rate 16 04/10/24 15:21 Blood Pressure 124/99 H 04/10/24 15:21 Pulse Oximetry 97 04/10/24 15:21 Oxygen Delivery Method Room Air 04/10/24 15:21 Temperature 99.4 F 04/12/24 12:52 Pulse Rate 63 04/12/24 12:52 Respiratory Rate 16 04/12/24 12:52 Blood Pressure 102/69 04/12/24 12:52 Pulse Oximetry 97 04/12/24 12:52 Oxygen Delivery Method Room Air 04/12/24 05:21 Medications Administered Medications: Discontinued Medications Generic Name Dose Route Start Last Admin Trade Name Freq PRN Reason Stop Dose Admin Sodium Chloride 1,000 mls @ 1,000 mls/hr 04/10/24 15:45 04/10/24 18:20 0.9 % Sodium Chloride 1000 Ml IV 04/10/24 16:44 Infused .Q1H ONE Infusion Ampicillin Sodium/Sulbactam 100 mls @ 200 mls/hr 04/10/24 20:04 04/10/24 20:53 Sodium 3 gm/ Sodium Chloride IVPB 04/10/24 20:05 Infused ONCE ONE Infusion Lactated Ringer's 1,000 mls @ 1,000 mls/hr 04/10/24 20:04 04/10/24 22:47 Lactated Ringers 1000 Ml IV 04/10/24 21:03 Infused .Q1H ONE Infusion Ampicillin Sodium/Sulbactam 100 mls @ 200 mls/hr 04/11/24 02:00 04/12/24 14:22 Sodium 3 gm/ Sodium Chloride IVPB 200 mls/hr Q6H ELMER Administration Lactated Ringer's 1,000 mls @ 125 mls/hr 04/11/24 06:25 04/12/24 02:07 Lactated Ringers 1000 Ml IV 125 mls/hr .Q8H ELMER Administration Ibuprofen 800 mg 04/10/24 16:53 04/10/24 17:03 Ibuprofen 400 Mg Tablet PO 04/10/24 16:54 800 mg ONCE ONE Administration Ibuprofen 600 mg 04/11/24 01:19 04/11/24 22:21 Ibuprofen 600 Mg Tablet PO 600 mg Q6H PRN Administration Pain Lidocaine HCl 20 ml 04/12/24 06:38 04/12/24 07:50 Lidocaine 1% Mdv INJECTION 04/12/24 06:39 10 ml ONCE ONE Administration Misoprostol 800 mcg 04/12/24 08:01 04/12/24 07:50 Misoprostol 800 Mcg/4 Tablet AK 04/12/24 08:02 800 mcg ONCE ONE Administration Promethazine HCl 12.5 - 25 mg 04/11/24 01:49 04/11/24 02:01 Promethazine 25 Mg/Ml Inj IVP 25 mg Q4H PRN Administration Nausea And Vomiting Silver Nitrate/Potassium Nitrate 1 each 04/12/24 06:38 04/12/24 07:45 Silver Nitrate Applicator 1 Each Stick..Ea. TOPICAL 04/12/24 06:39 2 each ONCE ONE Administration Medical Decision Making MDM Narrative Medical decision making narrative: Would have concerns of possible endometritis or seroma collection and maybe concomitant viral process, possibly abscess though I think this is less likely. Given recent postop would be prudent to image with IV contrasted CT of abdomen pelvis. Not appear to have localized symptoms of mastitis/mastalgia. IV hydration. Labs. Ibuprofen. Study:?CT-Abdomen/Pelvis W/IV-04/10/2024 5:00:52 PM Ordering Physician:GRISEL Final Report: INDICATION: Postop , incisional area swelling. TECHNIQUE: CT abdomen and pelvis acquired with 102 mL Isovue 370 IV contrast. COMPARISON: None. FINDINGS: Lower chest: No focal consolidation. Liver: No suspicious focal hepatic lesion. Gallbladder and bile ducts: Unremarkable. Pancreas: Unremarkable. Spleen: Unremarkable. Adrenal glands: Unremarkable. Kidneys: Kidneys enhance symmetrically, without hydronephrosis. Too small to characterize hypodense bilateral renal lesions. Retroperitoneum: No lymphadenopathy. Bowel and mesentery: Bowel is not obstructed. No significant ascites, no pneumoperitoneum. Large fecal burden is noted throughout the colon. Normal appendix. Bladder: Decompressed, suboptimally evaluated. Reproductive organs: There is persistent prominence of the endometrium, with ill-defined soft tissue in the anterior aspect of the endometrial canal. Pelvic lymph nodes: No lymphadenopathy. Vessels: Unremarkable. Abdominal wall: Inflammatory changes and scarring associated with Pfannenstiel incision in the ventral pelvic wall, no subcutaneous fluid collection/abscess identified. Bones: No suspicious/aggressive focal osseous lesion. IMPRESSION: 1. Ill-defined soft tissue within the endometrial canal, nonspecific, however is concerning for retained products of conception. 2. Inflammatory changes and scarring associated with Pfannenstiel incision in the ventral pelvic wall, no subcutaneous fluid collection/abscess identified. Clarifying images with ultrasound. Study:?US-Pelvis PELVIS TV-04/10/2024 7:22:52 PM Ordering Physician:?NICK PITTS MD Final Report: INDICATION: Query retained products of conception. TECHNIQUE: Ultrasound pelvis transvaginal, limited. Real-time sonographic images with spectral and color Doppler imaging of the uterus only. COMPARISON: CT abdomen/pelvis earlier same day. FINDINGS: Uterus: 14.2 x 7.8 x 11.2 cm. Endometrium: Diffuse thickening of the endometrium. Heterogeneous echogenicities are present within the endometrium, without internal vascularity. The endometrial thickness measures 2.6 cm. Mass: No uterine fibroids identified. IMPRESSION: Diffuse thickening of the endometrium, containing avascular heterogeneous echogenicities. Retained products of conception with or without hemorrhagic products remains on the differential, as does gestational trophoblastic disease. Recommend correlation with serum beta HCG, and obstetric/gynecologic evaluation. Discuss this case with OB on-call. Will be initiating IV antibiotics. Has received IV fluids. Labs are overall reassuring. Has SIRS criteria but does not meet sepsis criteria. Lab Data Lab results reviewed: Yes I reviewed the patient's lab results Labs: Lab Results 04/10/24 04/10/24 04/10/24 Range/Units 16:05 16:18 16:50 WBC 11.35 H (4.50-11.00) K/uL RBC 4.69 (4.00-5.20) m/uL Hgb 13.6 (12.0-16.0) gm/dL Hct 41.2 (33.0-51.0) % MCV 88 (80-100) fL MCH 29 (26-34) pg MCHC 33 (32-36) gm/dL RDW Coeff of Tamara 12.7 (11.5-15.5) % Plt Count 268 (140-440) K/uL Neut % (Auto) 84.4 H (42.0-72.0) % Lymph % (Auto) 10.2 L (20-44) % [place] % (Auto) 4.7 (0.0-11.0) % Eos % (Auto) 0.3 (0.0-7.0) % Baso % (Auto) 0.2 (0.0-3.0) % Neut # (Auto) 9.60 H (1.7-7.0) K/uL Lymph # (Auto) 1.20 (0.90-2.90) K/uL [place] # (Auto) 0.50 (0.00-0.90) K/UL Eos # (Auto) 0.00 (0.00-0.50) K/uL Baso # (Auto) 0.00 (0.00-0.30) K/uL Abs Immat Gran (auto) 0.00 (0.00-0.30) K/uL Imm/Tot Granulo (auto) 0.2 % Sodium 137 (135-149) mmol/L Potassium 4.1 (3.6-5.1) mmol/L Chloride 104 (96-114) mmol/L Carbon Dioxide 26 (20-32) mmol/L Anion Gap 7 (7-15) mEq/L BUN 17 (5-24) mg/dL Creatinine 0.8 (0.5-1.5) mg/dL Estimated Creat Clear 107.15 Estimated GFR 99 ml/min Glucose 93 (60-115) mg/dL Lactate 1.5 (0.5-1.9) mmol/L Calcium 9.2 (8.4-10.6) mg/dL C-Reactive Protein 1.6 H (0.5-1.0) mg/dL Urine Color Yellow (Yellow) Urine Appearance Clear (Clear) Urine pH 7.5 (5.0-8.5) Ur Specific [place] 1.015 (1.000-1.030) Urine Protein Negative (Negative) Urine Glucose (UA) Negative (Negative) Urine Ketones Negative (Negative) Urine Blood Negative (Negative) Urine Nitrite Negative (Negative) Urine Bilirubin Negative (Negative) Urine Urobilinogen 0.2 (0.2-1.0) Ur Leukocyte Esterase Negative (Negative) Urine RBC 0-2 (0-2) Urine WBC 0-2 (0-5) Ur Squamous Epith Cells None (None-Few) Urine Bacteria None (None) SARS-CoV-2 (PCR) Negative SARS-CoV-2 (Negative) Influenza Type A (PCR) Negative PCR FLU A (Negative) Influenza Type B (PCR) Negative PCR FLU B (Negative) Discharge Plan Discharge Clinical Impression: Fever, Endometritis, Abdominal pain Patient Disposition: Admit to OB Condition: Stable
--- NOTE | 2024-04-10 15:45 | CT_ITS ---
Patient: NAVIN VERNON Facility:?[facility] Patient ID:?[id number] Site Patient ID:?[id number]. Site :?1990 Study:?CT-Abdomen/Pelvis W/IV-04/10/2024 5:00:52 PM Ordering Physician:GRISEL Final Report: INDICATION: Postop , incisional area swelling. TECHNIQUE: CT abdomen and pelvis acquired with 102 mL Isovue 370 IV contrast. COMPARISON: None. FINDINGS: Lower chest: No focal consolidation. Liver: No suspicious focal hepatic lesion. Gallbladder and bile ducts: Unremarkable. Pancreas: Unremarkable. Spleen: Unremarkable. Adrenal glands: Unremarkable. Kidneys: Kidneys enhance symmetrically, without hydronephrosis. Too small to characterize hypodense bilateral renal lesions. Retroperitoneum: No lymphadenopathy. Bowel and mesentery: Bowel is not obstructed. No significant ascites, no pneumoperitoneum. Large fecal burden is noted throughout the colon. Normal appendix. Bladder: Decompressed, suboptimally evaluated. Reproductive organs: There is persistent prominence of the endometrium, with ill-defined soft tissue in the anterior aspect of the endometrial canal. Pelvic lymph nodes: No lymphadenopathy. Vessels: Unremarkable. Abdominal wall: Inflammatory changes and scarring associated with Pfannenstiel incision in the ventral pelvic wall, no subcutaneous fluid collection/abscess identified. Bones: No suspicious/aggressive focal osseous lesion. IMPRESSION: 1. Ill-defined soft tissue within the endometrial canal, nonspecific, however is concerning for retained products of conception. 2. Inflammatory changes and scarring associated with Pfannenstiel incision in the ventral pelvic wall, no subcutaneous fluid collection/abscess identified. Please note that all CT scans at this facility use dose modulation, iterative reconstruction, and/or weight-based dosing when appropriate to reduce radiation dose to as low as reasonably achievable. Dictated by Jesenia Thao MD @ 04/10/2024 5:49:57 PM ----- ADDENDUM ----- Report receipt confirmed with Dr. Bradley at 17:53 on 04/10/2024. Dictated by Jesenia Thao MD @ Apr 10 2024 8:15PM Signed by:?Jesenia Thao MD @04/10/2024 5:49:57 PM (Electronic Signature)
--- OUTSIDE RECORDS SUMMARY | 2024-04-10 16:26 | XMS_ITS | Referral Summary ---
Author Name Unknown Organization [facility] Address [address] [facility] [place] [address] Care Team Providers Care Precision Optics Technician Name Role Phone Leia Vang MD Unavailable [phone] No Ref-Primary, Physician Primary Care Provider Leia Vang MD Unavailable [phone] Allergies No known active allergies Medications Medication [...] Comments Blood Pressure 112/69 11/20/2023 3:08 PM VETERINARY BACTERIOLOGIST Pulse 78 11/20/2023 3:08 PM VETERINARY BACTERIOLOGIST Temperature 36.9 ??C (98.4 ??F) 09/19/2017 8:57 AM CD T Respiratory Rate - - Oxygen Saturation 100% 11/20/2023 3:08 PM VETERINARY BACTERIOLOGIST Inhaled Oxygen Concentration - - Weight 92.4 kg (203 lb 9.6 oz) 11/20/2023 3:08 P M VETERINARY BACTERIOLOGIST Height 177.8 cm (5' 10) 11/20/2023 3:08 PM VETERINARY BACTERIOLOGIST Body Mass Index 29.21 11/20/2023 3:08 PM VETERINARY BACTERIOLOGIST Plan of Treatment Not on file Procedures [...] Recently Relevant to Health Maintenance Care Teams Precision Optics Technician Relationship Specialty Start Date End Date No Ref-Primary, Physician PCP - General 10/21/23 Leia Vang MD [address] [facility] [address] [place] [address] handle maker 10/21/23 Leia Vang MD [address] [facility] [address] [place] [address] Assigned OBGYN Provider 11/23/23
--- OUTSIDE RECORDS SUMMARY | 2024-04-10 16:26 | XMS_ITS ---
Author Name Unknown Organization [facility] Address [address] [place] [address] Care Team Providers Care Apartment Assistant Manager Name Role Phone Unavailable Unavailable Unavailable Surgery Details Not on file Complications Check Surgery Details section. Procedure Estimated Blood Loss Check Surgery Details section. Procedure Findings Check Surgery Details section. Procedure Specimens Taken Check Surgery Details section.
--- OUTSIDE RECORDS SUMMARY | 2024-04-10 16:26 | XMS_ITS | Clinical Summary ---
Author Name Unknown Organization [facility] Address [address] [place] [address] Care Team Providers Care Financial Services Professional Name Role Phone Unavailable Primary Care Provider Unavailabl e Source Comments Patient records contain information from all sites at [facility]. For routine questions regarding patient records, call [phone] during business hours, M-F 8:00 AM - 5:00 PM Central Time. Record requests for emergency care only can be directed to [phone] at any time.[facility] Allergies No known active allergies Medications Medication [...] How often do you attend chur or advent services? More than 4 times per year 12/20/2022 Do you belong to any clubs o r organizations such as christian groups, unions, fraternal or athletic groups, or [...] Answer Date Recorded PHQ-2 Score 0 02/26/2023 [facility] - Occupational Stress Questionnaire Answer Date [...] place to sleep or slept in a chcf (including now)? No 12/20/2022 Depression Answer Date [...] - B LOOD ORDERABLES Performing Organization Address [facility]/State/ZIP Co de Phone Number [facility] [address] [place] [id number], [facility] [place] [address] * HCV Ab Scrn w/Reflex to HCV PCR, Serum (06/18/2022 4:39 PM CDT) HCV Ab Screen, S Negative Negative 06/19/2022 8:58 AM CDT [facility] Comment:Zndxww-ih-yzygfp rat io is <1.00. Blood (Blood, Venous) 06/18/2022 4:39 PM CDT 06/19/2022 6:49 AM CDT Henri Ron M.D. LAB MICROBIOLOGY - B LOOD ORDERABLES [facility] [address] [place] [address] [facility] Dept. of Laboratory Medicine and Pathology [address] [place] [phone] from Last 3 Months or Most Recently Relevant to Health Maintenance
--- OUTSIDE RECORDS SUMMARY | 2024-04-10 16:26 | XMS_ITS | Referral Summary ---
Author Name Unknown Organization [facility] Address [address] [place] [address] Care Team Providers Care Screening Technician Name Role Phone Unavailable Primary Care Provider Unavailabl e Source Comments Patient records contain information from all sites at [facility]. For routine questions regarding patient records, call [phone] during business hours, M-F 8:00 AM - 5:00 PM Central Time. Record requests for emergency care only can be directed to [phone] at any time.[facility] Allergies No known active allergies Medications [...] How often do you attend chur or christianity services? More than 4 times per year 12/20/2022 Do you belong to any clubs o r organizations such as yazidi groups, unions, fraternal or athletic groups, or [...] Answer Date Recorded PHQ-2 Score 0 02/26/2023 [facility] - Occupational Stress Questionnaire Answer Date [...] place to sleep or slept in a senior care (including now)? No 12/20/2022 Depression Answer Date [...] M.D. LAB MICROBIOLOGY - B LOOD ORDERABLES [facility] [address] [place] [address], [place] [facility] [place] [address] [place] [address] * HCV Ab Scrn w/Reflex to HCV PCR, Serum (06/18/2022 4:39 PM CDT) HCV Ab Screen, S Negative Negative 06/19/2022 8:58 AM CDT [facility] Comment:Gvqlxd-hs-xicnhp rat io is <1.00. Blood (Blood, Venous) 06/18/2022 4:39 PM CDT 06/19/2022 6:49 AM CDT Henri Ron M.D. LAB MICROBIOLOGY - B LOOD ORDERABLES [facility] [address] [place] [address] [facility] Dept. of Laboratory Medicine and Pathology [address] [place] [phone] from Last 3 Months or Most Recently Relevant to Health Maintenance
--- OUTSIDE RECORDS SUMMARY | 2024-04-10 16:26 | XMS_ITS | Clinical Summary ---
Author Name Unknown Organization [facility] Address [address] [facility] [place] [address] Care Team Providers Care Chief Information Security Officer Name Role Phone Leia Vang MD Unavailable [phone] No Ref-Primary, Physician Primary Care Provider Leia Vang MD Unavailable [phone] Allergies No known active allergies Medications Medication [...] Comments Blood Pressure 112/69 11/20/2023 3:08 PM COAL GRADER Pulse 78 11/20/2023 3:08 PM COAL GRADER Temperature 36.9 ??C (98.4 ??F) 09/19/2017 8:57 AM CD T Respiratory Rate - - Oxygen Saturation 100% 11/20/2023 3:08 PM COAL GRADER Inhaled Oxygen Concentration - - Weight 92.4 kg (203 lb 9.6 oz) 11/20/2023 3:08 P M COAL GRADER Height 177.8 cm (5' 10) 11/20/2023 3:08 PM COAL GRADER Body Mass Index 29.21 11/20/2023 3:08 PM COAL GRADER Plan of Treatment Health Maintenance Due Date [...] Recently Relevant to Health Maintenance Care Teams Chief Information Security Officer Relationship Specialty Start Date End Date No Ref-Primary, Physician PCP - General 10/21/23 Leia Vang MD [address] [facility] [address] [place] [address] band saw operator 10/21/23 Leia Vang MD [address] [facility] [address] [place] [address] Assigned OBGYN Provider 11/23/23
[2024-04-10 16:28] LABS: Lactate* 1.5 mmol/L (0.5-1.9)
[2024-04-10 16:30] LABS: Basophils Percent Auto 0.2 % (0.0-3.0); Eosinophils Percent Auto 0.3 % (0.0-7.0); Hematocrit 41.2 % (33.0-51.0); Hemoglobin* 13.6 gm/dL (12.0-16.0); Immature Granulocytes Pct Auto 0.2 %; Lymphocytes Percent Auto 10.2 % (20-44); Mean Corpuscular HGB Conc 33 gm/dL (32-36); Mean Corpuscular Hemoglobin 29 pg (26-34); Mean Corpuscular Volume 88 fL (80-100); Monocytes Percent Auto 4.7 % (0.0-11.0); Neutrophils Percent Auto 84.4 % (42.0-72.0); Platelet Count* 268 K/uL (140-440); RDW Coefficient of Variation % 12.7 % (11.5-15.5); Red Blood Count 4.69 m/uL (4.00-5.20); White Blood Count* 11.35 K/uL (4.50-11.00)
[2024-04-10 16:35] LABS: Slide Review Reflex No
[2024-04-10 16:42] LABS: Chloride* 104 mmol/L (96-114); Sodium* 137 mmol/L (135-149)
[2024-04-10 16:43] LABS: Potassium* 4.1 mmol/L (3.6-5.1)
[2024-04-10 16:45] LABS: Creatinine* 0.8 mg/dL (0.5-1.5); Est. Creatinine Clearance* 107.15; Estimated Glomerular Filt Rate 99 ml/min
[2024-04-10 16:46] LABS: Anion Gap 7 mEq/L (7-15); Blood Urea Nitrogen* 17 mg/dL (5-24); Calcium* 9.2 mg/dL (8.4-10.6); Carbon Dioxide* 26 mmol/L (20-32); Glucose* 93 mg/dL (60-115)
[2024-04-10 16:49] LABS: C Reactive Protein* 1.6 mg/dL (0.5-1.0)
[2024-04-10] MEDS: 0.9 % SODIUM CHLORIDE 1000 ml 1,000 ML IV (17:02)
[2024-04-10] MEDS: IBUPROFEN 400 MG TABLET 800 MG PO (17:03)
[2024-04-10 17:07] LABS: Appearance Urine Clear (Clear); Bilirubin Urine Negative (Negative); Blood Urine Negative (Negative); Color Urine Yellow (Yellow); Glucose Urine Negative (Negative); Ketones Urine Negative (Negative); Leukocyte Esterase Urine Negative (Negative); Nitrite Urine Negative (Negative); Protein Urine Negative (Negative); Specific Gravity Urine 1.015 (1.000-1.030); Urobilinogen Urine 0.2 (0.2-1.0); pH Urine 7.5 (5.0-8.5)
[2024-04-10 17:21] LABS: RBC Urine 0-2 (0-2); WBC Urine 0-2 (0-5)
[2024-04-10 17:48] LABS: PCR FLU A Negative PCR FLU A (Negative); PCR FLU B Negative PCR FLU B (Negative); SARS PCR* Negative SARS-CoV-2 (Negative)
--- NOTE | 2024-04-10 18:49 | US_ITS ---
Patient: NAVIN VERNON Facility:?[facility] RIS Patient ID:?[id number] Site Patient ID:?[id number] Site :?1990 Study:?US-Pelvis PELVIS TV-04/10/2024 7:22:52 PM Ordering Physician:?NICK PITTS MD Final Report: INDICATION: Query retained products of conception. TECHNIQUE: Ultrasound pelvis transvaginal, limited. Real-time sonographic images with spectral and color Doppler imaging of the uterus only. COMPARISON: CT abdomen/pelvis earlier same day. FINDINGS: Uterus: 14.2 x 7.8 x 11.2 cm. Endometrium: Diffuse thickening of the endometrium. Heterogeneous echogenicities are present within the endometrium, without internal vascularity. The endometrial thickness measures 2.6 cm. Mass: No uterine fibroids identified. IMPRESSION: Diffuse thickening of the endometrium, containing avascular heterogeneous echogenicities. Retained products of conception with or without hemorrhagic products remains on the differential, as does gestational trophoblastic disease. Recommend correlation with serum beta HCG, and obstetric/gynecologic evaluation. Dictated by Jesenia Thao MD @ 04/10/2024 8:14:52 PM Signed by:?Jesenia Thao MD @04/10/2024 8:14:52 PM (Electronic Signature)
[2024-04-10] MEDS: AMPICILLIN/SULBACTAM 3 GM in 0.9 % SODIUM CHLORIDE Mini-bag 100 ML IVPB (20:21)
[2024-04-10] MEDS: LACTATED RINGERS 1000 ML 1,000 ML IV (20:53)
--- NOTE | 2024-04-10 20:56 | P.GYNCN_ITS ---
TRAILER CHIEF - CN: HPI Data of Consult Date Seen: 04/10/24 Patient: [facility] Patient Consult date: 04/10/24 Primary Care Provider: Not a Local Provider Consult Narrative Narrative: Isabel is a 34-year-old G3 now P 2-0-1-2 woman who is 11 days status post repeat delivery on 03/30/2024 at 39 weeks, 0 days gestation. She had an uncomplicated repeat . She received 2 g of Ancef prior to procedure. She had an uncomplicated in-hospital course and was discharged on day 2. She then presented to the ER after developing incisional pain, low back pain, body aches, and a mildly elevated temperature at home. She reports t a short duration of a sore throat which has since resolved. She denies any shortness of breath, leg swelling or pain, dysuria. CT OF ABDOMEN AND PELVIS IMPRESSION: 1. Ill-defined soft tissue within the endometrial canal, nonspecific, however is concerning for retained products of conception. 2. Inflammatory changes and scarring associated with Pfannenstiel incision in the ventral pelvic wall, no subcutaneous fluid collection/abscess identified. PELVIC ULTRASOUND: Uterus: 14.2 x 7.8 x 11.2 cm. Endometrium: Diffuse thickening of the endometrium. Heterogeneous echogenicities are present within the endometrium, without internal vascularity. The endometrial thickness measures 2.6 cm. Mass: No uterine fibroids identified. IMPRESSION: Diffuse thickening of the endometrium, containing avascular heterogeneous echogenicities. Retained products of conception with or without hemorrhagic p roducts remains on the differential, as does gestational trophoblastic disease. Recommend correlation with serum beta HCG, and obstetric/gynecologic evaluation. cc:: CC: Review of Systems Status of ROS: Reports: 6 or more systems reviewed and unremarkable except as noted in History and below [facility] Medical History (Updated 04/10/24 @ 21:22 by Lyn Combs MD) No significant past medical history Surgical History [place] teeth removed ?K08.409 - Partial loss of teeth, unspecified cause, unspecified class (ICD- 10) H/O section ?Z98.891 - History of uterine scar from previous surgery (ICD-10) Family History Mother No problems noted. Father No problems noted. Paternal Grandmother Alzheimers disease Paternal Grandfather Leukemia Maternal Grandfather No problems noted. Maternal Grandmother No problems noted. Sister No problems noted. Sister No problems noted. 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) Lives with: Tank Pets: dog Abuse: Denies past/present Special Diet: Denies Ok with a blood transfusion: yes Culture or catholic beliefs: denies RISK FACTORS Exercise Times/wk: Walk 45 min per day, cardio or lift weights Depression/Anxiety: denies Seat Belt Use: Routinely Smoking: Denies past/present Alcohol/day: Denies while ; rarely Caffeine: Coffee 2 cups per day Drug Use: Denies past/present Chicken Pox: Yes as a child MRSA: Denies What is your current living situation?: I presently have a place to live Problems where you live: no known problems In the past 12 months, utilities in danger of being shut off: no In past 12 months, lack of transportation kept you from medical appts, meetings, work, or getting things needed for daily living: no In the past 12 mos, have been you worried that your food would run out before you had money to buy more?: never true In the past 12 mos, the food you bought just didn't last and you didn't have money to buy more?: never true Smoking Status: Never smoker Non-prescribed substance use: denies use How often does anyone, including family, friends and others, physically hurt you : never How often does anyone, including family, friends and others, insult or talk down to you: never How often does anyone, including family, friends and others, threaten you with harm: never How often does anyone, including family, friends and others, scream or curse at you: never Little interest or pleasure in doing things: not at all Feeling down, depressed, or hopeless: not at all Meds Home Medications and Allergies Home Medications Medication Instructions Recorded Confirmed Type vits no.126-ferrous fum 1 tab PO DAILY PRN 08/26/23 03/30/24 History 28 mg iron-folic acid 800 mcg tablet (Classic ) Allergies Allergy/AdvReac Type Severity Reaction Status Date / Time No Known Drug Allergies Allergy Verified 04/10/24 15:25 TRAILER CHIEF - Exam Physical Exam: Vital signs: Temp Pulse Resp BP Pulse Ox O2 Del Method 99.8 F H 89 18 122/77 97 Room Air 04/10/24 18:00 04/10/24 18:45 04/10/24 18:00 04/10/24 17:07 04/10/24 18:45 04/10/24 18:45 Narrative: Physical exam: General: No acute distress Psych: Alert and oriented x3, full affect HEENT: Normocephalic, atraumatic Neck: No cervical adenopathy, no thyromegaly Heart: Regular rate and rhythm, no murmur rub or gallop Lungs: Clear to auscultation bilaterally Abdomen: Soft, mildly tender to deep palpation over the uterine fundus, no rebound or guarding, no distension. Incision is clean, dry, and intact. Lower extremities: No edema or erythema Pelvic exam: Deferred TRAILER CHIEF - Results Labs Labs: Short CBC 04/10/24 Range/Units 16:18 WBC 11.35 H (4.50-11.00) K/uL Hgb 13.6 (12.0-16.0) gm/dL Hct 41.2 (33.0-51.0) % Plt Count 268 (140-440) K/uL BMP 04/10/24 16:18 Sodium 137 Potassium 4.1 Chloride 104 Carbon Dioxide 26 BUN 17 Creatinine 0.8 Glucose 93 Calcium 9.2 Urine 04/10/24 Range/Units 16:50 Urine Color Yellow (Yellow) Urine Appearance Clear (Clear) Urine pH 7.5 (5.0-8.5) Ur Specific [place] 1.015 (1.000-1.030) Urine Protein Negative (Negative) Urine Glucose (UA) Negative (Negative) Imaging Pelvic ultrasound: Attestation: I have reviewed the pertinent imaging results. My impression: There is a thickened and irregular endometrial stripe, but there is no focal blood flow to the endometrium. The endometrium has some fluid within it, likely blood, and I suspect that the debris inside is clot. Radiologist's impression: Cannot rule out retained products of conception Assessment and Plan Assessment and plan (1) Endometritis: Status: Acute Assessment and Plan: Isabel presented with a temperature of 100.7?. She did feel systemically ill. Given her lack of an obvious site of infection, I favor empiric treatment for endometritis. I will use Unasyn 3 g IV q.6 hours. I favor treatment for 24-48 hours afebrile. I will repeat complete blood count tomorrow. (2) S/P repeat low transverse : Problem comment: 03/30/24 Status: Acute Plan as above
[2024-04-10] MEDS: LACTATED RINGERS 1000 ML 1,000 ML 125 ML IV (22:30)
[2024-04-11] VITALS (12 sets, daily range): BP systolic 90–124; BP diastolic 57–85; PULSE 73–94; RESP 12–22; TEMP 36.5–39.1; O2SAT 96–98
[2024-04-11] MEDS: IBUPROFEN 600 MG TABLET PO ×4 (01:24→22:21)
[2024-04-11] MEDS: AMPICILLIN/SULBACTAM 3 GM in 0.9 % SODIUM CHLORIDE Mini-bag 100 ML IVPB ×4 (01:25→19:33)
[2024-04-11] MEDS: PROMETHAZINE 25 MG/ML INJ IVP (02:01)
[2024-04-11 06:55] LABS: Basophils Absolute Auto 0.02 K/uL (0.00-0.30); Basophils Percent Auto 0.3 % (0.0-3.0); Eosinophils Absolute Auto 0.02 K/uL (0.00-0.50); Eosinophils Percent Auto 0.3 % (0.0-7.0); Hematocrit 35.5 % (33.0-51.0); Hemoglobin* 11.5 gm/dL (12.0-16.0); Immature Granulocytes Abs Auto 0.01 K/uL (0.00-0.30); Immature Granulocytes Pct Auto 0.2 %; Lymphocytes Percent Auto 19.2 % (20-44); Mean Corpuscular HGB Conc 32 gm/dL (32-36); Mean Corpuscular Hemoglobin 29 pg (26-34); Mean Corpuscular Volume 89 fL (80-100); Monocytes Percent Auto 6.2 % (0.0-11.0); Neutrophils Percent Auto 73.8 % (42.0-72.0); Platelet Count* 212 K/uL (140-440)
[2024-04-11 07:06] LABS: Slide Review Reflex No
[2024-04-11] MEDS: LACTATED RINGERS 1000 ML 1,000 ML 125 ML IV (07:59)
[2024-04-11 11:37] LABS: Basophils Absolute Auto 0.02 K/uL (0.00-0.30); Basophils Percent Auto 0.3 % (0.0-3.0); Eosinophils Absolute Auto 0.03 K/uL (0.00-0.50); Eosinophils Percent Auto 0.4 % (0.0-7.0); Hematocrit 37.6 % (33.0-51.0); Hemoglobin* 12.2 gm/dL (12.0-16.0); Immature Granulocytes Abs Auto 0.02 K/uL (0.00-0.30); Immature Granulocytes Pct Auto 0.3 %; Mean Corpuscular HGB Conc 32 gm/dL (32-36); Mean Corpuscular Hemoglobin 29 pg (26-34); Mean Corpuscular Volume 90 fL (80-100); Monocytes Percent Auto 6.8 % (0.0-11.0); Neutrophils Percent Auto 76.2 % (42.0-72.0); Platelet Count* 220 K/uL (140-440); RDW Coefficient of Variation % 13.1 % (11.5-15.5); Red Blood Count 4.19 m/uL (4.00-5.20); White Blood Count* 6.94 K/uL (4.50-11.00)
[2024-04-11 11:39] LABS: Slide Review Reflex No
--- NOTE | 2024-04-11 12:43 | PM.GYNPNNOR ---
Progress Note: A&P Assessment and plan (1) Endometritis: Status: Acute Plan Patient states to be feeling much better. WBC this morning back to normal. Will continue IV antibiotics until at least 24 hours afebrile. Final impression of imaging studies still pending. Continue current management. ACUTE CARE NURSE- PN:Subj Non-OR Subjective Time Seen by Provider: 12:43 Date Seen: 04/11/24 Interval history: I am feeling much better. ACUTE CARE NURSE-PN: Obj Exam Physical Exam: Vital signs: Temp Pulse Resp BP Pulse Ox O2 Del Method 98.6 F 85 15 105/70 97 Room Air 04/11/24 10:52 04/11/24 10:52 04/11/24 10:52 04/11/24 10:52 04/11/24 10:52 04/11/24 10:52 Narrative: VITAL SIGNS: As noted above. GENERAL APPEARANCE: Alert, cooperative female in no acute distress. MOOD & AFFECT: Normal. ABDOMEN: Positive bowel sounds, no guarding, no rebound. Soft, non-distended and minimally tender upon deep palpation of her lower abdomen. Incision without surrounding erythema, abnormal induration or discharge. : Minimal spotting. EXTREMITIES: Nonedematous. Well perfused. Nontender. ACUTE CARE NURSE - PN: Obj Data Labs Labs: Laboratory Results - last 24 hr 04/10/24 04/10/24 04/10/24 16:05 16:18 16:50 WBC 11.35 H RBC 4.69 Hgb 13.6 Hct 41.2 MCV 88 MCH 29 MCHC 33 RDW Coeff of Tamara 12.7 Plt Count 268 Neut % (Auto) 84.4 H Lymph % (Auto) 10.2 L [place] % (Auto) 4.7 Eos % (Auto) 0.3 Baso % (Auto) 0.2 Neut # (Auto) 9.60 H Lymph # (Auto) 1.20 Sebastian # (Auto) 0.50 Eos # (Auto) 0.00 Baso # (Auto) 0.00 Abs Immat Gran (auto) 0.00 Imm/Tot Granulo (auto) 0.2 Sodium 137 Potassium 4.1 Chloride 104 Carbon Dioxide 26 Anion Gap 7 BUN 17 Creatinine 0.8 Estimated Creat Clear 107.15 Estimated GFR 99 Glucose 93 Lactate 1.5 Calcium 9.2 C-Reactive Protein 1.6 H Urine Color Yellow Urine Appearance Clear Urine pH 7.5 Ur Specific [place] 1.015 Urine Protein Negative Urine Glucose (UA) Negative Urine Ketones Negative Urine Blood Negative Urine Nitrite Negative Urine Bilirubin Negative Urine Urobilinogen 0.2 Ur Leukocyte Esterase Negative Urine RBC 0-2 Urine WBC 0-2 Ur Squamous Epith Cells None Urine Bacteria None SARS-CoV-2 (PCR) Negative SARS-CoV-2 Influenza Type A (PCR) Negative PCR FLU A Influenza Type B (PCR) Negative PCR FLU B 04/11/24 04/11/24 06:30 11:30 WBC 6.10 6.94 RBC 4.00 4.19 Hgb 11.5 L 12.2 Hct 35.5 37.6 MCV 89 90 MCH 29 29 MCHC 32 32 RDW Coeff of Tamara 13.0 13.1 Plt Count 212 220 Neut % (Auto) 73.8 H 76.2 H Lymph % (Auto) 19.2 L 16.0 L Sebastian % (Auto) 6.2 6.8 Eos % (Auto) 0.3 0.4 Baso % (Auto) 0.3 0.3 Neut # (Auto) 4.50 5.30 Lymph # (Auto) 1.20 1.10 Sebastian # (Auto) 0.40 0.50 Eos # (Auto) 0.02 0.03 Baso # (Auto) 0.02 0.02 Abs Immat Gran (auto) 0.01 0.02 Imm/Tot Granulo (auto) 0.2 0.3 Sodium Potassium Chloride Carbon Dioxide Anion Gap BUN Creatinine Estimated Creat Clear Estimated GFR Glucose Lactate Calcium C-Reactive Protein Urine Color Urine Appearance Urine pH Ur Specific [place] Urine Protein Urine Glucose (UA) Urine Ketones Urine Blood Urine Nitrite Urine Bilirubin Urine Urobilinogen Ur Leukocyte Esterase Urine RBC Urine WBC Ur Squamous Epith Cells Urine Bacteria SARS-CoV-2 (PCR) Influenza Type A (PCR) Influenza Type B (PCR)
[2024-04-12] VITALS (8 sets, daily range): BP systolic 102–131; BP diastolic 58–89; PULSE 56–72; RESP 12–16; TEMP 36.5–37.4; O2SAT 95–99
[2024-04-12] MEDS: AMPICILLIN/SULBACTAM 3 GM in 0.9 % SODIUM CHLORIDE Mini-bag 100 ML IVPB ×3 (02:04→14:22)
[2024-04-12] MEDS: LACTATED RINGERS 1000 ML 1,000 ML 125 ML IV (02:07)
[2024-04-12] MEDS: SILVER NITRATE APPLICATOR 1 EACH STICK..EA. TOPICAL (07:45)
[2024-04-12] MEDS: miSOPROStoL 800 MCG/4 TABLET PR (07:50)
[2024-04-12] MEDS: LIDOCAINE 1% MDV 20 ML INJECTION (07:50)
--- NOTE | 2024-04-12 08:10 | P.ANES_ITS ---
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
--- NOTE | 2024-04-12 08:20 | W.PM.GYNPROC ---
Procedure Note Date of procedure: 04/12/24 Will [facility] bill your pro fee for this procedure?: Yes Pre-op diagnosis: endometritis, possible retained products of conception Post-op diagnosis: endometritis, possible retained products of conception Procedure: Suction, dilation and curettage Anesthesia: MAC Complications: None Surgeon: Brodie Spears MD Estimated blood loss (mL): 10 Urine Output (mL): 5 Pathology: specimen obtained, sent to pathology Condition: stable Disposition: floor Findings: Normal external genitalia, cervix closed and grossly normal w/o abnormal discharge. Uterine sound: 13 cm. Large amount of blood clots and small amount of possible retained products noted. Cervical laceration from tenaculum at 11-1 o clock. Procedure Description: Risks, benefits, alternatives, and indications of the procedure were discussed with the patient. She voiced an understanding of the procedure and signed the consent. The patient was taken to the OR were MAC anesthesia was administered without difficulty. She was placed in the dorsal lithotomy position with Mikie type stirrups. The patient was prepared and draped in the normal sterile fashion. Her bladder was emptied with in--out catheter. A bivalved speculum was inserted in the posterior aspect of the vagina. 10 mL 1% lidocaine was injected in the anterior lip of cervix, the single-tooth tenaculum was used to grasp the anterior lip of the cervix. Cervix was gently dilated with Hegar dilators and even with gentle traction tenaculum slipped and created a cervical laceration. This was repaired with Vicryl 3-0 in a figure of 8 and hemostasis was secured. The uterus was carefully sounded to 13 cm. Dark blood clots noted to come out. A 8 mm suction curette was advanced to the uterine fundus. The suction was then started. Mostly dark blood and some small areas that could represent retained products were evacuated with the curette rotating on the outward movement. This was completed 3 times until only bright red blood was noted to come out. A bedside US completed and endometrial cavity noted to be homogenous and thin. The tenaculum was removed from the cervix and good hemostasis was noted after application of silver nitrate. 800mcg of rectal Cytotec placed. The patient tolerated the procedure well. Instrument and sponge counts were correct x2. Patient was taken to the recovery room in a stable condition. Patient has been receiving Unasyn IV every 6 hours and next dose due at 8am. Will continue IV antibiotics until afternoon today and will consider discharge home after that if she remains afebrile and stable.
--- NOTE | 2024-04-12 11:06 | PM.GYNDS1 ---
DS: Providers Provider Date Seen: 04/12/24 Date of admission: 04/10/24 21:19 Primary care physician: Not a Local Provider Admitting Clinician: Lyn Combs MD Attending Physician on discharge: Tammi Spears MD Date of Discharge: 04/12/24 DS: Diagnosis Discharge Diagnosis (1) Endometritis: Status: Acute (2) S/P dilation and curettage: Status: Acute WATER AEROBICS INSTRUCTOR-Discharge Summary Hospital Course Hospital Course Narrative: Patient is a 34 year old admitted on 04/10/24 for IV antibiotics due to diagnosis of endometritis. Indication for surgery: Possible retained products of conception and persistent fever after antibiotics. Intraoperative findings were notable for large amount of dark blood clots and possible retained products. She had an uncomplicated surgery. Postoperative course has been uneventful. Vitals have been stable. She has remained afebrile. Patient has completed 48 hours of IV antibiotics, underwent D&C this morning. She will be more than 24 hours afebrile this afternoon and is requesting discharge home. Pain is well controlled. She has been able to ambulate Without difficulty. She is tolerating regular diet. She is passing flatus. She is voidingwithout difficulty. Time Spent with Patient Time attestation: Total time spent providing and/or coordinating discharge services: Time spent: Less than 30 minutes WATER AEROBICS INSTRUCTOR - Exam Physical Exam: Vital signs: Temp Pulse Resp BP Pulse Ox O2 Del Method 97.7 F 71 16 117/79 99 Room Air 04/12/24 08:09 04/12/24 08:54 04/12/24 08:54 04/12/24 08:54 04/12/24 08:54 04/12/24 05:21 Narrative: VITAL SIGNS: As noted above. GENERAL APPEARANCE: Alert, cooperative female in no acute distress. MOOD & AFFECT: Normal. ABDOMEN: Soft, non-distended and nontender. : Minimal bleeding. EXTREMITIES: Nonedematous. Well perfused. Nontender. WATER AEROBICS INSTRUCTOR - DS: Data Data Completed and Pending Completed studies during hospitalization: Procedures Extraction of Products of Conception, Low, Open Approach (03/30/24) Labs on day of discharge: Labs from last 24 hours 04/11/24 11:30 WBC 6.94 RBC 4.19 Hgb 12.2 Hct 37.6 MCV 90 MCH 29 MCHC 32 RDW Coeff of Tamara 13.1 Plt Count 220 Neut % (Auto) 76.2 H Lymph % (Auto) 16.0 L [place] % (Auto) 6.8 Eos % (Auto) 0.4 Baso % (Auto) 0.3 Neut # (Auto) 5.30 Lymph # (Auto) 1.10 [place] # (Auto) 0.50 Eos # (Auto) 0.03 Baso # (Auto) 0.02 Abs Immat Gran (auto) 0.02 Imm/Tot Granulo (auto) 0.3 Preliminary micro results at discharge 04/10/24 16:05 Blood Culture - Preliminary Blood NO GROWTH AFTER 24 HOURS 04/10/24 16:18 Blood Culture - Preliminary Blood NO GROWTH AFTER 24 HOURS Procedures Procedures: Procedures Operation Date: 04/12/24 07:00 Actual Procedure Side Surgeon p Suction Dilatation & Curettage Not Applicable Tammi Spears MD Discharge Plan Discharge Disposition: Home, Self-Care Date of Admission: 04/11/24 06:22 Attending Provider on Discharge: Tammi Spears Primary Care Provider: Provider,Not a Local Condition: Stable Anticipated Discharge Date/Time: 04/12/24 16:30 Discharge Medications: Continued Classic 28 mg iron- 800 mcg tablet 1 tab PO DAILY PRN Discontinued ferrous sulfate 325 mg (65 mg iron) Tablet 325 mg PO Q OTHER DAY Qty: 30 2RF Discharge Orders: Discharge Order (Routine); Ordered 04/12/24 Ordered By: Tammi Spears Patient Education: Amoxicillin (By mouth), Deep Sedation (DC), Dilation and Curettage (DC) Activity Level: Activity as Tolerated Activity Detail: Nothing vaginally and no lifting more than 15-20 pounds until 6 weeks Discharge Diet: Regular Follow Up Appointments: Provider,Not a Local [Primary Care Provider] - Forms: [employer] Info Instructions
--- NOTE | 2024-04-13 04:25 | PC.NURSE ---
access chart due to critical lab called from lab
--- NOTE | 2024-04-13 04:39 | PC.NURSE ---
Positive blood culture reported to Bradley Webber MD. Moriah Villa RNC
--- OUTSIDE RECORDS SUMMARY | 2024-05-04 12:14 | XMS_ITS | Clinical Summary ---
Author Organization [facility] Address [address] [facility] [place] [address] Care Team Providers Care Music Arranger Name Role Phone Leia Vang MD Unavailable [phone] No Ref-Primary, Physician Primary Care Provider Leia Vang MD Unavailable [phone] Allergies No known active allergies Medications Medication [...] Comments Blood Pressure 112/69 11/20/2023 3:08 PM TRADITIONAL CHINESE HERBALIST Pulse 78 11/20/2023 3:08 PM TRADITIONAL CHINESE HERBALIST Temperature 36.9 ??C (98.4 ??F) 09/19/2017 8:57 AM CD T Respiratory Rate - - Oxygen Saturation 100% 11/20/2023 3:08 PM TRADITIONAL CHINESE HERBALIST Inhaled Oxygen Concentration - - Weight 92.4 kg (203 lb 9.6 oz) 11/20/2023 3:08 P M TRADITIONAL CHINESE HERBALIST Height 177.8 cm (5' 10) 11/20/2023 3:08 PM TRADITIONAL CHINESE HERBALIST Body Mass Index 29.21 11/20/2023 3:08 PM TRADITIONAL CHINESE HERBALIST Plan of Treatment Health Maintenance Due Date [...] Recently Relevant to Health Maintenance Care Teams Music Arranger Relationship Specialty Start Date End Date No Ref-Primary, Physician PCP - General 10/21/23 Leia Vang MD [address] [place] [address] dropper tank storage 10/21/23 Leia Vang MD [address] [place] [address] Assigned OBGYN Provider 11/23/23
--- OUTSIDE RECORDS SUMMARY | 2024-05-04 12:14 | XMS_ITS | Clinical Summary ---
Author Organization [facility] Address [address] [place] [address] Care Team Providers Care Interventional Technologist Name Role Phone Unavailable Primary Care Provider Unavailabl e Source Comments Patient records contain information from all sites at [facility]. For routine questions regarding patient records, call [phone] during business hours, M-F 8:00 AM - 5:00 PM Central Time. Record requests for emergency care only can be directed to [phone] at any time.[facility] Allergies No known active allergies Medications [...] How often do you attend chur or shinto services? More than 4 times per year 12/20/2022 Do you belong to any clubs o r organizations such as rastafarian groups, unions, fraternal or athletic groups, or [...] Answer Date Recorded PHQ-2 Score 0 02/26/2023 [facility] - Occupational Stress Questionnaire Answer Date [...] you have received? Professional school degree (e.g., MD, DDS, DVM, URBANO) 06/06/2022 Sex and Gender [...] - B LOOD ORDERABLES Performing Organization Address City/[facility]/ZIP Co de Phone Number [facility] [address] [place] [id number], [facility] [place] [address] * HCV Ab Scrn w/Reflex to HCV PCR, Serum (06/18/2022 4:39 PM CDT) HCV Ab Screen, S Negative Negative 06/19/2022 8:58 AM CDT [facility] Comment:Poypuu-wm-qwmjoj rat io is <1.00. Blood (Blood, Venous) 06/18/2022 4:39 PM CDT 06/19/2022 6:49 AM CDT Henri Ron M.D. LAB MICROBIOLOGY - B LOOD ORDERABLES [facility] [place] [address] [place] [address] [facility] Dept. of Laboratory Medicine and Pathology [address] [place] [address] from Last 3 Months or Most Recently Relevant to Health Maintenance
--- OUTSIDE RECORDS SUMMARY | 2024-05-04 12:14 | XMS_ITS | Referral Summary ---
Author Organization [facility] Address [address] [place] [address] Care Team Providers Care Custodial Services Manager Name Role Phone Unavailable Primary Care Provider Unavailabl e Source Comments Patient records contain information from all sites at [facility]. For routine questions regarding patient records, call [phone] during business hours, M-F 8:00 AM - 5:00 PM Central Time. Record requests for emergency care only can be directed to [phone] at any time.[facility] Allergies No known active allergies Medications [...] How often do you attend chur or mandaen services? More than 4 times per year 12/20/2022 Do you belong to any clubs o r organizations such as latter day groups, unions, fraternal or athletic groups, or [...] Answer Date Recorded PHQ-2 Score 0 02/26/2023 [facility] ionmd Health - Occupational Stress Questionnaire Answer Date [...] place to sleep or slept in a mcc (including now)? No 12/20/2022 Depression Answer Date [...] M.D. LAB MICROBIOLOGY - B LOOD ORDERABLES [facility] [address] [facility] [place] [address], [place] [facility] [place] [address] [place] [address] * HCV Ab Scrn w/Reflex to HCV PCR, Serum (06/18/2022 4:39 PM CDT) HCV Ab Screen, S Negative Negative 06/19/2022 8:58 AM CDT [facility] Comment:Bqptfu-yw-rthhez rat io is <1.00. Blood (Blood, Venous) 06/18/2022 4:39 PM CDT 06/19/2022 6:49 AM CDT Henri Ron M.D. LAB MICROBIOLOGY - B LOOD ORDERABLES [facility] SU[facility] [place] [address] [place] [address] [facility] Dept. of Laboratory Medicine and Pathology [address] [place] [address] from Last 3 Months or Most Recently Relevant to Health Maintenance
--- OUTSIDE RECORDS SUMMARY | 2024-05-04 12:14 | XMS_ITS ---
Author Organization [facility] Address [address] [place] [address] Care Team Providers Care Performance Improvement Consultant Name Role Phone Unavailable Unavailable Unavailable Surgery Details Not on file Complications Check Surgery Details section. Procedure Estimated Blood Loss Check Surgery Details section. Procedure Findings Check Surgery Details section. Procedure Specimens Taken Check Surgery Details section.
--- OUTSIDE RECORDS SUMMARY | 2024-05-04 12:14 | XMS_ITS | Referral Summary ---
Author Organization [facility] Address [address] [place] [address] Care Team Providers Care Director Script Name Role Phone Leia Vang MD Unavailable [phone] No Ref-Primary, Physician Primary Care Provider Leia Vang MD Unavailable [phone] Allergies No known active allergies Medications Medication [...] Comments Blood Pressure 112/69 11/20/2023 3:08 PM SLATE SPLITTING SUPERVISOR Pulse 78 11/20/2023 3:08 PM SLATE SPLITTING SUPERVISOR Temperature 36.9 ??C (98.4 ??F) 09/19/2017 8:57 AM CD T Respiratory Rate - - Oxygen Saturation 100% 11/20/2023 3:08 PM SLATE SPLITTING SUPERVISOR Inhaled Oxygen Concentration - - Weight 92.4 kg (203 lb 9.6 oz) 11/20/2023 3:08 P M SLATE SPLITTING SUPERVISOR Height 177.8 cm (5' 10) 11/20/2023 3:08 PM SLATE SPLITTING SUPERVISOR Body Mass Index 29.21 11/20/2023 3:08 PM SLATE SPLITTING SUPERVISOR Plan of Treatment Not on file Procedures [...] Recently Relevant to Health Maintenance Care Teams Director Script Relationship Specialty Start Date End Date No Ref-Primary, Physician PCP - General 10/21/23 Leia Vang MD [address] [facility] [address] [place] [address] tricot knitter 10/21/23 Leia Vang MD [address] [facility] [address] [place] [address] Assigned OBGYN Provider 11/23/23
== END 2024-04-12 14:50 | disposition home or self-care (01) | DRG 544 ==
LOC: ED 20:17 → OB 04-12 06:19
PROVIDERS: Admitting Provider Obstetrics & Gynecology; Emergency Provider Family Medicine; Visit Provider Obstetrics & Gynecology
PROC: 10D17ZZ Extraction of Products of Conception, Retained, Via Natural or Artificial Opening (ICD-10-PCS; CPT 59160; principal; 2024-04-12 06:50)
DX: O86.12 Endometritis following delivery (principal); O73.1 Retained portions of placenta and membranes, without hemorrhage; N99.71 Accidental puncture and laceration of a genitourinary system organ or structure during a genitourinary system procedure
CPT/HCPCS: 59160; 00940; 36415; 74177; 76830; 80048; 81001; 83605; 85025; 86140; 87040; 87631; 88305; 94761; 99140; 99284; 99285; A9270; G0378; J0295; J2250; J2405; J2550; J2704; J3010; J7030; J7120; Q9967

== ENCOUNTER 2025-05-05 09:29 | Outpatient (CLI) | payer BC, SELFPAY ==
[2025-05-06 16:26] LABS: HPV Source Cervical; HPV, High Risk by TMA Not Detected
[2025-05-17 15:13] LABS: Pap Test Reviewed by Path Done
== END 2025-05-05 09:30 | disposition home or self-care (01) ==
PROVIDERS: Visit Provider Advanced Practice Midwife
DX: Z00.00 Encounter for general adult medical examination without abnormal findings (principal); Z11.51 Encounter for screening for human papillomavirus (HPV); Z12.4 Encounter for screening for malignant neoplasm of cervix; Z13.29 Encounter for screening for other suspected endocrine disorder
CPT/HCPCS: 84443; 87624; 87625; 88141; 88142

== ENCOUNTER 2025-05-27 17:42 | Emergency (ER) | payer BC, SELFPAY ==
--- OUTSIDE RECORDS SUMMARY | 2025-05-27 17:44 | XMS_ITS | Clinical Summary ---
Author Organization [facility] Address [address] [facility] [place] [address] Care Team Providers Care Hand Ii Tube Bender Name Role Phone Leia Vang MD Unavailable [phone] No Ref-Primary, Physician Primary Care Provider Leia Vang MD Unavailable [phone] Allergies No known active allergies Medications Vit-DSS-Fe Cbn-FA ( AD PO) Act denia Active Problems Problem Noted Date Diagnosed Date Need for Tdap vaccination 10/30/2023 Controlled substance agreement signed 10/04/2015 Overview (09/19/2017): Overview: For use of stimulant medication Attention deficit hyperactiv ity disorder (ADHD), predominantly inattentive type 09/12/2015 Resolved Problems Problem Noted Date Diagnosed Date [...] School Help Needed Not on file 10/30 Comments No Sex and Gender Information Value Date Recorded Sex Assigned at Not on file Legal Sex Female 5:04 PM CDT Gender Identity Not on file Sexual Orientation Not on file Last Filed Vital Signs Vital Sign Reading Time Taken Comments Blood Pressure 112/69 11/20/2023 3:08 PM BUILD ENGINEER Pulse 78 11/20/2023 3:08 PM BUILD ENGINEER Temperature 36.9 C (98.4 F) 09/19/2017 8:57 AM CDT Respiratory Rate - - Oxygen Saturation 100% 11/20/2023 3:08 PM BUILD ENGINEER Inhaled Oxygen Concentration - - Weight 92.4 kg (203 lb 9.6 oz) 11/20/2023 3:08 P M BUILD ENGINEER Height 177.8 cm (5' 10) 11/20/2023 3:08 PM BUILD ENGINEER Body Mass Index 29.21 11/20/2023 3:08 PM BUILD ENGINEER Plan of Treatment Health Maintenance Due Date Last Done Comments ADVANCE CARE PLANNING 1990 ANNUAL REVIEW OF HM ORDERS 1990 PAP 2011 YEARLY PREVENTIVE VISIT 09/28/2021 09/28/2020 COVID-19 VACCINE ( season) 2024 01/10/2021, 12/20/2020 PHQ-2 (once per calendar year) 2024 10/30/2023 INFLUENZA VACCINE (Season Ended) 2025 09/28/2020, 09/05/2019, 08/13/2018, Additional history exists DIABETES SCREENING 08/26/2026 08/26/2023 DTAP/TDAP/TD VACCINE (8 - Td or Tdap) 10/26/2032 10/26/2022, 02/12/2018, 05/27/2008, Additional history exists ZOSTER VACCINE (1 of 2) 2040 HEPATITIS B VACCINE Completed 02/25/2003, 12/12/2002, 07/23/2002, Additional history exists MENINGITIS VACCINE Completed 05/18/2008 HPV VACCINE Completed 09/15/2012, 02/0 11/2010, 05/18/2008 HEPATITIS C SCREENING Completed 08/26/2023 HIV SCREENING Completed 08/26/2023 PNEUMOCOCCAL VACCINE: PEDIATRICS (0 to 5 YEARS) AND AT-RISK PATIENTS (6 to 49 YEARS) Aged Out No longer eligible based on patient's age to complete this topic Procedures Procedure Name Priority Date/Time Associated Diagnosis Comments HEMOGLOBIN A1C (EXTERNAL RESULT) Routine 08/26/2023 3:00 PM CDT HIV 1/2 AGN KATHY 4TH GEN WITH REFLEX ([facility]) Routine 08/26/2023 3:00 PM CDT HEPATITIS C ANTIBODY (EXTERNAL RESULT) Routine 08/26/2023 3:00 PM CDT from Last 3 Months or Most Recently Relevant to Health Maintenance Results * Hepatitis C Antibody (External Result) (08/26/2023 3:00 PM CDT) Hepatitis C Antibody (External) Negative Nonreactive EXTERNAL LAB 08/26/2023 3:00 PM CDT us Patient Reported LAB - HIM EXTERNAL RESULT Final Result Performing Organization Address City/[facility] Co de Phone Number EXTERNAL LAB External Lab * Hemoglobin A1c (External Result) (08/26/2023 3:00 PM CDT) Hemoglobin A1C (External) 5 0.0 - 5.7 % EXTERNAL LAB Blood 08/26/2023 3:00 PM CDT us Patient Reported LAB - HIM EXTERNAL RESULT Final Result EXTERNAL LAB External Lab * HIV 1/2 Agn Kathy 4th Gen w Reflex ([facility]) (08/26/2023 3:00 PM CDT) HIV 1/2 Agn Kathy 4th Gen With Reflex Negative EXTERNAL LAB Blood 08/26/2023 3:00 PM CDT us Patient Reported LAB - NON-BEAKER BLOOD LABS Fin al Result EXTERNAL LAB External Lab from Last 3 Months or Most Recently Relevant to Health Maintenance [place] Care Teams Hand Ii Tube Bender Relationship Specialty Start Date End Date No Ref-Primary, Physician PCP - General 10/21/23 Leia Vang MD [address] [address] director government 10/21/23 Leia Vang MD [address] [address] Assigned OBGYN Provider 11/23/23
--- OUTSIDE RECORDS SUMMARY | 2025-05-27 17:44 | XMS_ITS | Clinical Summary ---
Author Organization [facility] Address [address] [place] [address] Care Team Providers Care Wire Web Worker Name Role Phone Saleem Myrick [facility] Primary Care Provider Allergies No known active allergies Medications vit/iron fum/folic ac ( 11/25 ORAL) Take by mouth. Activ e ibuprofen (ADVIL; MOTRIN) 600 mg tabletIndicati ons:S/P section Take 1 Tablet (600 mg) by mouth every 6 hours if needed for Pain. Maximum of 3200 mg in 24 hours. 30 Tablet 01/21/2023 4:54 PM DEPUTY PROSECUTING ATTORNEY 3 Active acetaminophen (TYLENOL EXTRA STRGTH) 500 mg tabletIndicati ons:S/P section Take 2 Tablets (1,000 mg) by mouth every 6 hours if needed for Pain. Max acetaminophen dose: 4000mg in 24 hrs. 20 Tablet 01/21/2023 4:54 PM DEPUTY PROSECUTING ATTORNEY 3 Active ondansetron (ZOFRAN) 4 mg tabletIndicati ons:S/P section Take 1 Tablet (4 mg) by mouth every 8 hours if needed for Nausea/Vomiting. 12 Tablet 01/21/2023 4:54 PM DEPUTY PROSECUTING ATTORNEY 3 Active oxyCODONE-acet aminophen (PERCOCET) 5-325 mg per tabletIndicati ons:S/P section Take 1 Tablet by mouth every 4 hours if needed for Pain. Max acetaminophen dose: 4000mg in 24 hrs. 6 Tablet 01/21/2023 4:54 PM DEPUTY PROSECUTING ATTORNEY 3 Active valACYclovir 1 gram tablet TAKE 2 TABLETS AT SIGN OF PRODROME AND 2 TABLETS 12 HOURS LATER. 5 Active medication order composer Take 2 Tablets by mouth once daily. Active ipratropium 42 mcg (0.06 %) nasal sprayIndicatio ns:Dysfunction of both eustachian tubes Inhale 2 Sprays in both nostrils three times daily for 4 days. 15 mL 5 025 Active Problems Problem Noted Date Diagnosed Date CSA Signed 10-03-15- Dr. Myrick 10/04/2015 Overview (10/04/2015): For use of stimulant medication Attention deficit hyperactiv ity disorder (ADHD), inattentive type, mild 09/12/2015 Encounters Date Type Department Care Team Description 05/19/2025 8:05 AM CDT Office Visit [facility] [address] [facility] [address] [place] [address] Sofie Matta PA Ear Pain/problem 05/19/2025 Travel 05/14/2025 12:20 PM CDT Office Visit [facility] [address] [place] [address] Provider, [facility] Bell Florian, PRE[place] Throat Problem 05/14/2025 Travel 05/05/2025 Lab Requisition [facility] [phone] Meenakshi Granados, SABI from Last 3 Months Immunizations Immunization Administration Dates Next Due DTaP 06/10/1995, 0,1990,06/05,1990 HIB PRP-T (ActHIB,Hiberix) 07/09/1991,1991 Hepatitis A (Adult) 05/15/2013,04/20/2011 Hepatitis A (Peds) 04/20/2011 Hepatitis B (Peds) 02/25/2003, 3,07/23/2002,06/02,07/23/2000 Human Papilloma Virus Vaccine 09/15/2012, 011,05/18/2008 Inactivated Polio Vaccine 06/10/1995 Influenza, IIV3 (Age 6-35 mos) 08/25/2015 Influenza, IIV3 (Age >=3 years) 11/08/2010 Influenza, IIV4 09/28/2020,09/05/2019,08/13/2018 MMR 05/23/2015,04/05/2015 MMR, Unspecified 07/09/1999,06/29/1991 Meningococcal Vaccine (Menactra) 05/18/2008 Oral Polio Vaccine 1990,1990, 990 Td, Preservative Free (age >= 7 Years) 2 Tdap 02/12/2018,05/27/2008 Typhoid (injectable) 05/15/2013,06/22/2011 Typhoid, Unspecified 05/15/2013,06/22/2011 Varicella Vaccine 03/25/1993 Family History Medical History Relation Name Comments Good Health Father Good Health Mother Good Health Sister 1 Good Health Sister 2 Relation Name Status Comments Father Mother Sister 1 Sister 2 Social History Tobacco Use Types Packs/Day Years Used Date Smoking Tobacco: Never Passive Smoke Exposure: Never Smokeless Tobacco: Never Tobacco Cessation:Counseling Given: Not Answered Alcohol Use Standard Drinks/Week Comments Not Currently 0 (1 standard drink = 0.6 oz pur e alcohol) PHQ-2 Answer Date Recorded PHQ-2 TOTAL SCORE 0 06/21/2020 Social Connections Answer Date Recorded Do you often feel lonely or isolated from those around you? 0 05/19/2025 Financial Resource Strain Answer Date R ecorded Difficulty of Paying Living Expenses 3 05/19/2025 Difficulty of Paying Living Expenses Not on file 05/19/2025 Food Insecurity Answer Date Recorded Do you worry your food will run out before you are able to buy more? 1 05/19/2025 Transportation Needs Answer Date Record ed Does lack of transportation keep you from medica l appointments? 1 05/19/2025 Does lack of transportation keep you from work, meetings or getting things that you need? 1 05/19/2025 Housing Stability Answer Date Recorded What is your housing situation today? 1 05/19/2025 Utilities Answer Date Recorded Do you have trouble paying f or utilities (for example, heat, electricity, water, phone)? 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 Not on file Not on file Obstetrics History Para Term AB IAB SAB Ectopic Multiple Livin g Live Births 3 1 1 2 1 1 0 1 1 Date Outcome GA Total Labor Labor/2nd/3rd Weight Sex Type Anes PTL Bety A1 A5 Name Clin 2017 SAB 020 IAB 023 Term 40w 6d 24h 00m 3.54 kg (7 lb 13 oz) M C-Sec tion Epidur al Livin g 9 9 VERA SON,B B ISABEL deng, Brandin Escobar rd, MD Complications:Prolonged late nt phase Delivery Location:Hospital ( [facility] Last Filed Vital Signs Vital Sign Reading Time Taken Comments Blood Pressure 103/63 05/19/2025 8:04 AM CDT MAP 77 Pulse 77 05/19/2025 8:04 AM CDT Temperature 36.8 C (98.2 F) 05/19/2025 8:04 AM CDT Respiratory Rate 14 05/19/2025 8:04 AM CDT Oxygen Saturation 99% 05/19/2025 8:04 AM CDT Inhaled Oxygen Concentration - - Weight 81.6 kg (179 lb 12.8 oz) 025 12:16 PM CDT Height 177.8 cm (5' 10) 01/18/2023 8:30 AM DEPUTY PROSECUTING ATTORNEY Body Mass Index 25.8 01/18/2023 8:30 AM DEPUTY PROSECUTING ATTORNEY Plan of Treatment Upcoming Encounters Date Type Department Care Team (Late st Contact Info) Description 06/02/2025 1:50 PM CDT Telemedicine [facility] [address] [phone] Saleem Myrick MBBS [address] [address] Health Maintenance Due Date Last Done Comments Hepatitis C screening for age 18-79 2008 Depression screening for age 12+ 06/21/2021 06/21/2020, 06/21/2020, 10/06/2018, Additional history exists BMI (ht and wt on same day) for age 18+ 03/14/2023 03/14/2022, 09/28/2020, 10/06/2018, Additional history exists COVID-19 vaccine series ( season) 2024 01/10/2021 Influenza Vaccine (Season Ended) 2025 09/28/2020, 09/05/2019, 08/13/2018, Additional history exists Pap test for age 21-65 09/28/2025 , 09/28/2020, 11/13/2016 ([facility]), Additional history exists Tetanus booster 02/13/2028 02/12/2018, 01/2008, 06/02/2002 Hepatitis B series for 19+ Completed 02/25, 12/12/2002, 07/23/2002, Additional history exists (IA) Tdap Completed 02/12/2018, 05/27/2008 HIV for age 15-65 Completed 06/18/2022, 10/19/2013 Pneumococcal series for age 6-49 Aged Out No longer eligible based on patient's age to complete this topic Procedures Procedure Name Priority Date/Time Associated Diagnosis Comments THROAT CULTURE COMPREHENSIVE Routine 05/14/2025 12:19 PM CDT Sore throat LAB TRACKING EVENT Routine 05/05/2025 10 :50 AM CDT PATH TISSUE EXAM Routine 05/05/2025 10:5 0 AM CDT HIV EXTERNAL Routine 06/18/2022 SENIOR WEB APPLICATIONS DEVELOPER THIN PREP PAP SCREEN IMAGED Routine 09/28/2020 8:45 AM DEPUTY PROSECUTING ATTORNEY Pap smear for cervical cancer screening from Last 3 Months or Most Recently Relevant to Health Maintenance Results * THROAT CULTURE COMPREHENSIVE (05/14/2025 12:19 PM CDT) CULTURE Usual kulwant 05/16/2025 9:59 AM CDT [facility] Throat SPECIMEN FROM THROAT / Unknown Non-Blood / Unknown 05/14/2025 12:19 PM CDT 05/14/2025 12:20 PM CDT Bell Aydin Joao ADMINISTRATIVE SUPPORT ASSOCIATE MICROBIOLOGY Fin al Result Performing Organization Address City/[facility]/ZIP Co de Phone Number [facility] [address] [place] [address], [place] * LAB TRACKING EVENT (05/05/2025 10:50 AM CDT) Other (Other) Client Collect / Unknown 05/05/2025 10:50 AM CDT 05/05/2025 10:40 PM CDT Meenakshi Granados CNM LAB BILL ONLY Final Resu lt Performing Organization Address [facility] Co de Phone Number [facility] [address] [place] [address], [place] * PATH TISSUE EXAM (05/05/2025 10:50 AM CDT) Case Report Pathology Report Case: [id number] Authorizing Provider: Meenakshi Granados CNM Collected: 05/05/2025 1050 Ordering Location: [facility] Received: 05/06/2025 0816 Pathologist: Graham Mcfadden MD Specimen: Left Buttock, left inner buttock 05/10/2025 3:11 PM CDT [facility] Final Diagnosis A) SKIN, LEFT INNER BUTTOCK, BIOPSY: 1. Irritated skin tag (also known as acrochordon or fibroepithelial polyp) 2. No evidence of malignancy 05/10/2025 3:11 PM CDT [facility] at 1511 CDT Clinical Information Skin tag 05/10/2025 3:11 PM CDT [facility] Gross Description A) Received in formalin, labeled with the patient's name and left inner buttock, is a 0.5 x 0.3 cm skin shave. On the skin surface, there is a slightly raised abel-white nodule inked lesion present, measuring 0.5 x 0.3 cm. The deep margin is inked blue. The specimen is bisected and some entirely in 1 cassette. JAL 05/06/2025 05/10/2025 3:11 PM CDT [facility] EN[facility]AL LABORATORY Microscopic Description The final diagnosis is based on microscopic examination of appropriate sections of all specimens. A) The presence of blue ink is confirmed on tissue sections. 05/10/2025 3:11 PM CDT [facility]TRCO LABORATORY Additional Information Interpreted at [facility] - [address] [place] [address] 05/10/2025 3:11 PM CDT [facility] Other (Left Buttock) 05/05/2025 10:50 AM CDT 05/06/2025 8:16 AM CDT Meenakshi Granados CNM PATHOLOGY/CYTOLOGY Final R esult Performing Organization Address City/[facility]/ZIP Co de Phone Number [facility] [address] [place] [address], [place] * HIV EXTERNAL (06/18/2022) EXTERNAL HIV Negative [facility] Blood BLOOD SPECIMEN / Unknown Henri Ron MD LABORATORY Final Re sult [facility] [address] [place] [address], [place] * SENIOR WEB APPLICATIONS DEVELOPER THIN PREP PAP SCREEN IMAGED (09/28/2020 8:45 AM DEPUTY PROSECUTING ATTORNEY) Case Report Gynecologic Cytology Report Case: [id number] Authorizing Provider: Patsy Saenz MD Collected: 09/28/2020 0845 Ordering Location: [facility] Received: 09/28/2020 0905 Clinic First Screen: Ida Landers Rescreen: Kayla Johnson Pathologist: Kayla Womack MD Specimen: SENIOR WEB APPLICATIONS DEVELOPER ThinPrep Vial Screening, Cervical 10/06/2020 4:02 PM DEPUTY PROSECUTING ATTORNEY [facility] [employer] [facility] INTERPRETATION/ RESULT NEGATIVE FOR INTRAEPITHELIAL LESION OR MALIGNANCY (NIL) (none) 10/06/2020 4:02 PM DEPUTY PROSECUTING ATTORNEY [facility] at 1602 DEPUTY PROSECUTING ATTORNEY SPECIMEN ADEQUACY Satisfactory for evaluation Endocervical component present 10/06/2020 4:02 PM DEPUTY PROSECUTING ATTORNEY [facility] HPV REQUEST HPV and PAP 10/06/2020 4:02 PM DEPUTY PROSECUTING ATTORNEY [facility] Date of LMP Hormonally Suppressed 10/06/2020 4:02 PM DEPUTY PROSECUTING ATTORNEY [facility] Last Pap Date 2016 10/06/2020 4:02 PM DEPUTY PROSECUTING ATTORNEY [facility] Last Pap Result NIL 0 4:02 PM DEPUTY PROSECUTING ATTORNEY [facility] Abnormal Pap or [place] Bx in last 5 years No 10/06/2020 4:02 PM DEPUTY PROSECUTING ATTORNEY [facility] Menstrual Status Hormonally Suppressed 10/06/2020 4:02 PM DEPUTY PROSECUTING ATTORNEY [facility] [place] Bx Done Today No 10/06/2020 4:02 PM DEPUTY PROSECUTING ATTORNEY [facility] Additional Information None given 10/06/2020 4:02 PM DEPUTY PROSECUTING ATTORNEY [facility] Comment: Cytology is screened at [facility] Laboratory - [address], [place] [address] and [facility] - [address] [facility], [place] [address] and [facility] - [address] [place] [address] Interpreted at [facility] - [address], [place] [address] Automated Review Successful 10/06/2020 4:02 PM DEPUTY PROSECUTING ATTORNEY [facility] Comment:Specimen processed s uccessfully by automated senior front end engineer device, ThinPrep Imaging System, [employer] ANCILLARY TESTING SENIOR WEB APPLICATIONS DEVELOPER HPV Ordered, Please see separate report 10/06/2020 4:02 PM DEPUTY PROSECUTING ATTORNEY [facility] Note The pap test is a screening technique, not a diagnostic procedure. It is used primarily to screen for squamous cancers and precursor lesions. Published studies have shown that it is subject to both false negative and false positive results. The pap test should not be used as the sole means to diagnose or exclude pre-malignant and malignant lesions. 10/06/2020 4:02 PM DEPUTY PROSECUTING ATTORNEY [facility] LAB[facility] Other (Cervical) Non-Blood / Unknown 09/28/2020 8:45 AM DEPUTY PROSECUTING ATTORNEY 09/28/2020 9:05 AM DEPUTY PROSECUTING ATTORNEY us Patsy Saenz MD PATHOLOGY/CYTOLOGY Kandi stover Result agencyQ [facility] [address] [place] [address], from Last 3 Months or Most Recently Relevant to Health Maintenance Insurance [facility] Advance Directives * Full Code (Latest Code Status on File) Date Activated Date Inactivated Comments 01/18/2023 8:10 AM 01/21/2023 5:27 PM Question Answer Comments Code Status Discussion: Reviewed Preferences Care Teams Wire Web Worker Relationship Specialty Start Date End Date Saleem Myrick MBBS [address] [phone] PCP - General Family Practice 08/24/15
[2025-05-27 17:47] VITALS: BP 151/93; PULSE 91; RESP 18; TEMP 36.9; O2SAT 99; BMI 25.8
--- NOTE | 2025-05-27 18:17 | CRLHL7_ITS ---
For Patients: As a result of the Century Cures Act, medical imaging exams and procedure reports are released immediately into your electronic medical record. You may view this report before your referring provider. If you have questions, please contact your health care provider. INDICATION: Chest pain. TECHNIQUE: Chest 2 views. COMPARISON: None. FINDINGS: Cardiovascular and mediastinum: Heart size is normal. Unremarkable mediastinum. Lungs and pleural spaces: Lungs are clear. No sign of infiltrate or mass. No sign of pleural effusion. No pneumothorax. Bones and soft tissues: No significant findings. IMPRESSION: No acute or significant findings. Dictated by Adina Sebastian MD @ 05/27/2025 6:52:00 PM (Electronically Signed)
--- NOTE | 2025-05-27 18:19 | ED_ITS ---
HPI - General Adult General Date Seen: 05/27/25 Chief complaint: Cough Stated complaint: cough, chest pain Time Seen by Provider: 05/27/25 17:43 Source: patient Mode of arrival: ambulatory Limitations: no limitations History of Present Illness HPI narrative: Patient is a 35-year-old female with no pertinent medical problems presenting to the emergency department for chest pain. She states for past 2 or 3 days she has been having right-sided chest pain radiating to her right shoulder. Describes it as a dull ache. Denies symptoms like this before. Has also been having a nonproductive cough. Cough seems to be persistent. States when she will have a coughing fit she will feel short of breath. Does have some mild worsening chest pain with deep breathing. Has not of any fevers or chills. States her kids go to daycare have been sick at home. No history of blood clots. Denies hemoptysis, unilateral leg swelling, hormone use, recent surgery or trauma, history of cancer, recent travel. She does have another concern of occasionally feeling like she is having a brain fog. She states she typically talked her primary care provider about it but want pain med up since she is h ere. States there be episodes that have been going for the past 3 weeks will she will feel that she can concentrate and can not focus on what people are saying. Denies any associated headache, vision changes, weakness, numbness. Does states she thinks is likely due to being under lot of stress recently with work and her kids. No other concerns noted at this time. Related Data Home Medications ?Medication ?Instructions ?Recorded ?Confirmed No Known Home Medications 05/27/2502/16 Allergies Allergy/AdvReac Type Severity Reaction Status Date / Time No Known Drug Allergies Allergy Verified 05/27/25 17:53 Review of Systems Status of ROS: Reports: 10 or more systems reviewed and unremarkable except as noted in History and below [facility] Medical History Lactating mother ?Z39.1 - Encounter for care and examination of lactating mother (ICD-10) Abdominal pain ?R10.9 - Unspecified abdominal pain (ICD-10) No significant past medical history Surgical History S/P dilation and curettage ?Z98.890 - Other specified postprocedural states (ICD-10) [place] teeth removed ?K08.409 - Partial loss of teeth, unspecified cause, unspecified class (ICD- 10) H/O section ?Z98.891 - History of uterine scar from previous surgery (ICD-10) Family History Mother No problems noted. Father No problems noted. Paternal Grandmother Alzheimers disease Paternal Grandfather Leukemia Maternal Grandfather No problems noted. Maternal Grandmother No problems noted. Sister No problems noted. Sister No problems noted. 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) Lives with: Kyler and Carter Pets: dog, 2 cats Abuse: Denies past/present Special Diet: Denies Ok with a blood transfusion: yes Culture or moravian beliefs: denies RISK FACTORS Exercise Times/wk: Walk 45 min per day, cardio or lift weights; more running with children Depression/Anxiety: denies Seat Belt Use: Routinely Smoking: Denies past/present Alcohol/day: Socially, rare Caffeine: Coffee 2 cups per day or more Drug Use: Denies past/present Chicken Pox: Yes as a child MRSA: Denies What is your current living situation?: I presently have a place to live Problems where you live: no known problems In the past 12 months, utilities in danger of being shut off: no In past 12 months, lack of transportation kept you from medical appts, meetings, work, or getting things needed for daily living: no In the past 12 mos, have been you worried that your food would run out before you had money to buy more?: never true In the past 12 mos, the food you bought just didn't last and you didn't have money to buy more?: never true Smoking Status: Never smoker Non-prescribed substance use: denies use How often does anyone, including family, friends and others, physically hurt you : never How often does anyone, including family, friends and others, insult or talk down to you: never How often does anyone, including family, friends and others, threaten you with harm: never How often does anyone, including family, friends and others, scream or curse at you: never Exam Narrative: Exam Narrative: Const: Well-nourished, Well-developed, in mild distress Eyes: PERRL, no conjunctival injection, and symmetrical lids HENT: Atraumatic external nose and ears. Moist mucous membranes. Neck: Symmetric, trachea midline, No thyromegaly. CVS: RRR, No murmurs or gallops. Peripheral pulses 2+ and equal in all extremities RESP: Unlabored respiratory effort. Clear to auscultation bilaterally. GI: Nontender/Nondistended, No rebound or guarding. MSK:Extremities w/o deformity, Normal Active ROM. There was some tenderness to palpation to her right anterior chest around the cartilage portion of rib 4 and the back of her right shoulder. There was 1 time were she said I pushed in the exact spot that perfectly reproduced her pain. Skin: Warm, Dry. No rashes or lesions. Neuro: Normal Muscle tone, No focal neurological deficits. Psych: Awake, Alert, & Oriented x3. Appropriate mood and affect. Const: Vital Signs, click to edit/add: Vital Signs - 24 hr 05/27/25 17:47 Temperature 98.5 F Pulse Rate [Right Pulse Oximeter] 91 Respiratory Rate 18 Blood Pressure [Ri ght Upper Arm] 151/93 H Pulse Oximetry 99 Oxygen Delivery Me thod Room Air Course Vital Signs Vital signs: Initial Vital Signs Temperature 98.5 F 05/27/25 17:47 Temperature Source Temporal Artery Scan 05/27/25 17:47 Pulse Rate 91 05/27/25 17:47 Pulse Rhythm Regular 05/27/25 17:47 Pulse Strength 3+ Normal 05/27/25 17:47 Respiratory Rate 18 05/27/25 17:47 Blood Pressure 151/93 H 05/27/25 17:47 Blood Pressure Mean 112 H 05/27/25 17:47 Blood Pressure Position Sitting 05/27/25 17:47 Pulse Oximetry 99 05/27/25 17:47 Oxygen Delivery Method Room Air 05/27/25 17:47 Vital Signs Temperature 98.5 F 05/27/25 17:47 Pulse Rate 91 05/27/25 17:47 Respiratory Rate 18 05/27/25 17:47 Blood Pressure 151/93 H 05/27/25 17:47 Pulse Oximetry 99 05/27/25 17:47 Oxygen Delivery Method Room Air 05/27/25 17:47 Temperature 98.5 F 05/27/25 17:47 Pulse Rate 91 05/27/25 17:47 Respiratory Rate 18 05/27/25 17:47 Blood Pressure 151/93 H 05/27/25 17:47 Pulse Oximetry 99 05/27/25 17:47 Oxygen Delivery Method Room Air 05/27/25 17:47 Medical Decision Making [facility] Narrative Medical decision making narrative: Patient is a 35-year-old female presenting to the emergency department for chest pain. The differential diagnosis of chest pain is broad and includes common etiologies such as musculoskeletal strain, GERD, pneumonia, etc. More serious etiologies considered include PE, coronary artery disease, pneumothorax, aortic dissection, aortic aneurysm. She has otherwise appeared stable I do not believe she is having an aortic dissection or aortic aneurysm. She is PERC negative and PE can not be ruled out. Unlikely she is having any coronary artery disease but with the viral symptoms will do an EKG and troponin to look for signs of myocarditis. Chest x-ray will be ordered to look for signs of pneumonia or pneumothorax. With the pain being reproduced with the patient this does seem likely costochondritis. Will do viral swabs along with the BMP, CBC, magnesium also. This brain fog could be electrolyte related and those will be checked. I spoke to her further and she does think it is likely due to her anxiety and stress. I spoke to her about possible intracranial mass in we on agreement that this seems unlikely as she is not having any other symptoms with it other than this brain fog. I would expect more focal neurological deficits if there was an intracranial mass or at least a headache. I do not believe imaging is necessary at this time. Chest x-ray reviewed by myself and the radiologist shows no acute concerning abnormalities. EKG shows no acute concerning abnormalities. Troponin is within normal limits in considering how long symptoms have been going on for I do not believe repeat troponin is necessary. rhythm lab work shows no acute concerning abnormalities. At this time I do believe symptoms are from costochondritis. She will be discharged. She is agreeable to this plan. She is having some nausea still and will prescribe Zofran. Sent to [facility] Lab Data Labs: Lab Results 05/27/25 05/27/25 Range/Units 17:54 18:30 WBC 6.81 (4.50-11.00) K/uL RBC 4.20 (4.00-5.20) m/uL Hgb 12.5 (12.0-16.0) gm/dL Hct 37.2 (33.0-51.0) % MCV 89 (80-100) fL MCH 30 (26-34) pg MCHC 34 (32-36) gm/dL RDW Coeff of Tamara 12.7 (11.5-15.5) % Plt Count 192 (140-440) K/uL Neut % (Auto) 80.5 H (42.0-72.0) % Lymph % (Auto) 14.4 L (20-44) % [place] % (Auto) 3.5 (0.0-11.0) % Eos % (Auto) 1.2 (0.0-7.0) % Baso % (Auto) 0.3 (0.0-3.0) % Neut # (Auto) 5.50 (1.7-7.0) K/uL Lymph # (Auto) 1.00 (0.90-2.90) K/uL [place] # (Auto) 0.20 (0.00-0.90) K/UL Eos # (Auto) 0.08 (0.00-0.50) K/uL Baso # (Auto) 0.02 (0.00-0.30) K/uL Abs Immat Gran (auto) 0.01 (0.00-0.30) K/uL Imm/Tot Granulo (auto) 0.1 % Sodium 138 (135-149) mmol/L Potassium 3.9 (3.6-5.1) mmol/L Chloride 107 (96-114) mmol/L Carbon Dioxide 24 (20-32) mmol/L Anion Gap 7 (7-15) mEq/L BUN 15 (5-24) mg/dL Creatinine 0.7 (0.5-1.5) mg/dL Estimated Creat Clear 121.30 Estimated GFR 116 ml/min Glucose 87 (60-115) mg/dL Calcium 9.1 (8.4-10.6) mg/dL Magnesium 1.8 (1.5-2.6) mg/dL Troponin I < 0.01 (0.01-0.04) ng/mL SARS-CoV-2 (PCR) Negative SARS-CoV-2 (Negative) Influenza Type A (PCR) Negative PCR FLU A (Negative) Influenza Type B (PCR) Negative PCR FLU B (Negative) RSV (PCR) Negative PCR RSV (Negative) Imaging Data Chest x-ray: Attestation: I have reviewed the pertinent imaging results. Radiologist's impression: No acute or significant findings. Dictated by Adina Sebastian MD @ 05/27/2025 6:52:00 PM ECG Data Attestation: I personally reviewed and interpreted this ECG as follows: Prior ECG tracings: not available for review Interpretation: Normal sinus rhythm with a rate of 82 beats per minute, normal intervals, normal axis, no ST or T-wave abnormalities Discharge Plan Discharge Clinical Impression: Costochondritis Patient Disposition: Home, Self-Care Condition: Stable Instructions: Costochondritis (ED) Additional Instructions: I believe her symptoms are from costochondritis. I recommend taking Tylenol and ibuprofen for pain. I did prescribe Zofran via instymeds for nausea. If you chest pain and brain fog persist I do recommend following up with her primary care provider. Return to emergency department for new or worsening symptoms Prescriptions: No Action No Known Home Medications Follow Up/Referrals: Provider,Not a Local [Primary Care Provider, Family Practice] Stand Alone Forms: [facility] Info Instructions
[2025-05-27 18:40] LABS: Hematocrit 37.2 % (33.0-51.0); Hemoglobin* 12.5 gm/dL (12.0-16.0); Immature Granulocytes Abs Auto 0.01 K/uL (0.00-0.30); Immature Granulocytes Pct Auto 0.1 %; Mean Corpuscular HGB Conc 34 gm/dL (32-36); Mean Corpuscular Hemoglobin 30 pg (26-34); Mean Corpuscular Volume 89 fL (80-100); RDW Coefficient of Variation % 12.7 % (11.5-15.5); Red Blood Count 4.20 m/uL (4.00-5.20); White Blood Count* 6.81 K/uL (4.50-11.00)
[2025-05-27 18:43] LABS: Lymphocytes Absolute Auto 1.00 K/uL (0.90-2.90)
[2025-05-27 18:44] LABS: Slide Review Reflex No
[2025-05-27 18:44] LABS: PCR FLU A Negative PCR FLU A (Negative); PCR FLU B Negative PCR FLU B (Negative); PCR RSV Negative PCR RSV (Negative); SARS PCR* Negative SARS-CoV-2 (Negative)
[2025-05-27 18:52] LABS: Chloride* 107 mmol/L (96-114); Potassium* 3.9 mmol/L (3.6-5.1); Sodium* 138 mmol/L (135-149)
[2025-05-27 18:55] LABS: Anion Gap 7 mEq/L (7-15); Blood Urea Nitrogen* 15 mg/dL (5-24); Carbon Dioxide* 24 mmol/L (20-32); Creatinine* 0.7 mg/dL (0.5-1.5); Est. Creatinine Clearance* 121.30; Estimated Glomerular Filt Rate 116 ml/min
[2025-05-27 18:56] LABS: Calcium* 9.1 mg/dL (8.4-10.6); Glucose* 87 mg/dL (60-115)
== END 2025-05-27 19:45 | disposition home or self-care (01) ==
PROVIDERS: Emergency Provider Student in an Organized Health Care Education/Training Program
DX: M94.0 Chondrocostal junction syndrome [Tietze] (principal)
CPT/HCPCS: 36415; 71046; 80048; 83735; 84484; 85025; 87631; 93005; 99284